=== PATIENT | male | born 1960 | race Caucasian/White ===

== ENCOUNTER 2018-08-04 14:03 | Inpatient (IN) | payer MEDICARE ==
[~2018-08-04] VITALS: Ht 167.6 cm; Wt 99.7 kg
[~2018-08-04 14:03] MED LIST: GABA800T2 PO; INSU100I28 SQ; LISI40TA PO; MELO15TA24 PO; METF10002 PO; OMEP-110 PO; OXYC5CAP2 PO; PRAV20TA2 PO; SITA100T PO; SUCR1TAB PO
[2018-08-04] MEDS ORDERED: SODIUM CHLORIDE FLUSH 10ML SYR IVF ONE ×2 (14:30→15:30)
[2018-08-04 15:23] LABS: BASOPHILS # (AUTO) 0.03 x10^3/uL (0-0.1); BASOPHILS % (AUTO) 0 % (0-1); EOSINOPHILS # (AUTO) 0.08 x10^3/uL (0-0.4); EOSINOPHILS % (AUTO) 1 % (1-7); LYMPHOCYTES # (AUTO) 2.66 x10^3/uL (1-3.4); LYMPHOCYTES % (AUTO) 25 % (22-44); MD NO; MEAN CORPUSCULAR HEMOGLOBIN 28.7 pg (27.5-34.5); MEAN CORPUSCULAR VOLUME 86.9 fL (81-97); MEAN PLATELET VOLUME 8.1 fL (7.4-10.4); MONOCYTES # (AUTO) 0.87 x10^3/uL (0.2-0.8); MONOCYTES % (AUTO) 8 % (2-9); NEUTROPHILS # (AUTO) 7.02 x10^3/uL (1.8-6.8); NEUTROPHILS % (AUTO) 66 % (42-75); PLATELET COUNT 270 x10^3/uL (130-400)
[2018-08-04] MEDS ORDERED: SODIUM CHLORIDE 0.9% 1,000ML IVBOLUS ONE ×2 (15:30→16:00)
[2018-08-04 15:31] LABS: ALANINE AMINOTRANSFERASE 31 U/L (12-78); ALBUMIN 3.4 g/dL (3.4-5.0); ANION GAP 15 mmol/L (5-15); CALCIUM 8.5 mg/dL (8.5-10.1); CHLORIDE 105 mmol/L (98-107); CREATININE 1.06 mg/dL (0.7-1.3)
[2018-08-04 15:33] LABS: ALKALINE PHOSPHATASE 125 U/L (45-117); BILIRUBIN,TOTAL 0.2 mg/dL (0.2-1.0); TOTAL PROTEIN 7.4 g/dL (6.4-8.2)
[2018-08-04] MEDS: SODIUM CHLORIDE 0.9% 1,000 ML IV SCH ×3 (16:24→20:24)
[2018-08-04] MEDS ORDERED: AMPICILLIN/SULBACTAM 3 GM in SODIUM CHLORIDE 0.9% 100 ML IV ONE (16:30)
[2018-08-04] MEDS ORDERED: BISACODYL 10 MG SUPP PR PRN (16:30)
[2018-08-04] MEDS ORDERED: ONDANSETRON ODT 4 MG PO PRN (16:30)
[2018-08-04] MEDS ORDERED: DEXTROSE 50%, 50ML SYRINGE IVPush PRN (16:30)
[2018-08-04] MEDS ORDERED: DEXTROSE 4 GM TAB.CHEW PO PRN (16:30)
[2018-08-04] MEDS ORDERED: ZOLPIDEM 5MG TABLET PO PRN (16:30)
[2018-08-04] MEDS ORDERED: ACETAMINOPHEN 325 MG TABLET PO PRN (16:30)
[2018-08-04] MEDS ORDERED: DOCUSATE 100 MG CAPSULE PO PRN (16:30)
[2018-08-04] MEDS ORDERED: ONDANSETRON 2MG/ML, 2ML IV PRN (16:30)
[2018-08-04] MEDS ORDERED: PHARMACY MAY ADJ FOR RENAL FX MC SCH (16:30)
[2018-08-04] MEDS ORDERED: VANCOMYCIN PER PHARMACY MC SCH (16:30)
[2018-08-04] MEDS ORDERED: GLUCAGON 1 MG IM PRN (16:30)
[2018-08-04] MEDS ORDERED: BUPR150T13 PO (16:49)
[2018-08-04] MEDS ORDERED: AMLO10TA6 PO (16:52)
[2018-08-04] MEDS ORDERED: ATOR40TA78 PO (16:52)
[2018-08-04 17:34] LABS: HEMOGLOBIN A1C 8.9 % (4.2-6.3)
[2018-08-04] MEDS ORDERED: PHARMACOKINETIC MONITORING MC PRN (18:00)
[2018-08-04] MEDS ORDERED: PHARMACOKINETIC CONSULTATION MC ONE (18:00)
[2018-08-04] MEDS ORDERED: GADOBUTROL 10 MMOL/10 ML PFS ONE (19:13)
[2018-08-04] MEDS: PIPERACILLIN/TAZO/PMX 4.5GM 100 ML IVPB SCH (19:55)
[2018-08-04 20:00] VITALS: BP 130/71
[2018-08-04] MEDS: VANCOMYCIN 1,900 MG in SODIUM CHLORIDE 0.9% 250 ML IV SCH (20:48)
[2018-08-04] MEDS: SODIUM CHLORIDE FLUSH 10ML SYR IVF SCH (20:50)
[2018-08-04] MEDS: INSULIN REGULAR 100 UNITS/ML, 3ML VIAL SQ-INSULIN SCH (20:51)
[2018-08-04] MEDS: INSULIN LISPRO 100 UNITS/ML, PEN SQ-INSULIN SCH (20:51)
[2018-08-04] MEDS: GABAPENTIN 400 MG CAPSULE PO SCH (21:36)
[2018-08-04] MEDS: HEPARIN 5,000 UNITS/ML, 1ML SQ SCH (21:36)
[2018-08-04] MEDS: metFORMIN 500 MG TABLET PO SCH (21:36)
[2018-08-04] MEDS: PRAVASTATIN 20 MG TABLET PO SCH (21:36)
[2018-08-04 22:29] LABS: MICROSCOPIC NOT IND
[2018-08-05] MEDS: SODIUM CHLORIDE 0.9% 1,000 ML IV SCH ×4 (00:24→08:24)
[2018-08-05 01:19] VITALS: BP 127/75
[2018-08-05] MEDS: PIPERACILLIN/TAZO/PMX 4.5GM 100 ML IVPB SCH ×4 (02:09→20:01)
[2018-08-05] MEDS: HEPARIN 5,000 UNITS/ML, 1ML SQ SCH ×3 (06:21→22:35)
[2018-08-05] MEDS: INSULIN REGULAR 100 UNITS/ML, 3ML VIAL SQ-INSULIN SCH (07:00)
[2018-08-05 07:03] VITALS: BP 115/78
[2018-08-05] MEDS: SODIUM CHLORIDE FLUSH 10ML SYR IVF SCH ×2 (09:00→22:35)
[2018-08-05] MEDS: INSULIN DETEMIR 32 UNIT SQ SCH (09:00)
[2018-08-05] MEDS: GABAPENTIN 400 MG CAPSULE PO SCH ×3 (09:02→20:13)
[2018-08-05] MEDS: LISINOPRIL 20 MG TABLET PO SCH (09:02)
[2018-08-05] MEDS: SENNA/DOCUSATE TABLET PO SCH (09:02)
[2018-08-05] MEDS: metFORMIN 500 MG TABLET PO SCH ×2 (09:02→20:13)
[2018-08-05] MEDS: OMEPRAZOLE 20 MG CAPSULE.DR PO SCH (09:03)
[2018-08-05] MEDS: INSULIN LISPRO 100 UNITS/ML, PEN SQ-INSULIN SCH ×4 (10:04→20:14)
[2018-08-05 12:30] VITALS: BP 113/71
[2018-08-05] MEDS: HYDROcodone/APAP 5/325 TABLET PO PRN ×2 (17:33→22:41)
[2018-08-05 18:45] VITALS: BP 128/77
[2018-08-05] MEDS: PRAVASTATIN 20 MG TABLET PO SCH (20:13)
[2018-08-05] MEDS: VANCOMYCIN 1,900 MG in SODIUM CHLORIDE 0.9% 250 ML IV SCH (20:45)
[2018-08-06 00:50] VITALS: BP 144/89
[2018-08-06] MEDS: PIPERACILLIN/TAZO/PMX 4.5GM 100 ML IVPB SCH ×4 (02:13→20:43)
[2018-08-06 05:18] LABS: MD NO; MEAN CORPUSCULAR HGB CONC 33.5 g/dL (33.2-36.2); MEAN CORPUSCULAR VOLUME 86.5 fL (81-97); RED CELL DISTRIBUTION WIDTH 13.9 % (9.4-14.8)
[2018-08-06 05:21] LABS: CHLORIDE 104 mmol/L (98-107)
[2018-08-06 05:28] LABS: ALANINE AMINOTRANSFERASE 21 U/L (12-78); ALKALINE PHOSPHATASE 97 U/L (45-117); ANION GAP 9 mmol/L (5-15); BILIRUBIN,TOTAL 0.4 mg/dL (0.2-1.0); CALCIUM 8.5 mg/dL (8.5-10.1); CREATININE 0.87 mg/dL (0.7-1.3); HIGH-SENSITIVITY CRP 0.24 mg/dL (0.02-0.30); TOTAL PROTEIN 6.6 g/dL (6.4-8.2)
[2018-08-06 05:32] LABS: BASOPHILS # (AUTO) 0.04 x10^3/uL (0-0.1); BASOPHILS % (AUTO) 1 % (0-1); EOSINOPHILS # (AUTO) 0.07 x10^3/uL (0-0.4); EOSINOPHILS % (AUTO) 1 % (1-7); LYMPHOCYTES # (AUTO) 1.46 x10^3/uL (1-3.4); LYMPHOCYTES % (AUTO) 27 % (22-44); MEAN CORPUSCULAR HEMOGLOBIN 28.9 pg (27.5-34.5); MONOCYTES # (AUTO) 0.43 x10^3/uL (0.2-0.8); MONOCYTES % (AUTO) 8 % (2-9); NEUTROPHILS # (AUTO) 3.41 x10^3/uL (1.8-6.8); NEUTROPHILS % (AUTO) 63 % (42-75); PLATELET COUNT 201 x10^3/uL (130-400); RED BLOOD COUNT 4.44 x10^6/uL (4.38-5.82)
[2018-08-06 05:46] LABS: HCT (SEDRATE) 38.4 % (39.2-51.8)
[2018-08-06] MEDS: HEPARIN 5,000 UNITS/ML, 1ML SQ SCH ×3 (06:14→23:04)
[2018-08-06 06:59] VITALS: BP 126/83
[2018-08-06] MEDS: HYDROcodone/APAP 5/325 TABLET PO PRN ×4 (08:22→23:05)
[2018-08-06] MEDS: INSULIN LISPRO 100 UNITS/ML, PEN SQ-INSULIN SCH ×4 (08:23→21:13)
[2018-08-06] MEDS: SODIUM CHLORIDE FLUSH 10ML SYR IVF SCH ×2 (08:23→21:13)
[2018-08-06] MEDS: metFORMIN 500 MG TABLET PO SCH ×2 (08:24→21:12)
[2018-08-06] MEDS: SENNA/DOCUSATE TABLET PO SCH (08:24)
[2018-08-06] MEDS: OMEPRAZOLE 20 MG CAPSULE.DR PO SCH (08:24)
[2018-08-06] MEDS: LISINOPRIL 20 MG TABLET PO SCH (08:24)
[2018-08-06] MEDS: INSULIN DETEMIR 32 UNIT SQ SCH (09:00)
[2018-08-06 12:10] VITALS: BP 125/77
[2018-08-06] MEDS: GABAPENTIN 400 MG CAPSULE PO SCH ×3 (13:59→21:12)
[2018-08-06 20:23] VITALS: BP 117/68
[2018-08-06] MEDS: PRAVASTATIN 20 MG TABLET PO SCH (21:12)
[2018-08-06] MEDS: VANCOMYCIN 1,900 MG in SODIUM CHLORIDE 0.9% 250 ML IV SCH (21:31)
[2018-08-07 01:50] VITALS: BP 128/78
[2018-08-07] MEDS: PIPERACILLIN/TAZO/PMX 4.5GM 100 ML IVPB SCH ×4 (01:52→20:44)
[2018-08-07] MEDS: HYDROcodone/APAP 5/325 TABLET PO PRN ×4 (05:54→21:07)
[2018-08-07 06:58] VITALS: BP 141/63
[2018-08-07] MEDS: SENNA/DOCUSATE TABLET PO SCH (08:36)
[2018-08-07] MEDS: SODIUM CHLORIDE FLUSH 10ML SYR IVF SCH ×2 (08:43→20:46)
[2018-08-07] MEDS: HEPARIN 5,000 UNITS/ML, 1ML SQ SCH ×2 (08:43→16:02)
[2018-08-07] MEDS: LISINOPRIL 20 MG TABLET PO SCH (08:43)
[2018-08-07] MEDS: INSULIN LISPRO 100 UNITS/ML, PEN SQ-INSULIN SCH ×4 (08:43→20:45)
[2018-08-07] MEDS: OMEPRAZOLE 20 MG CAPSULE.DR PO SCH (08:44)
[2018-08-07] MEDS: metFORMIN 500 MG TABLET PO SCH ×2 (08:44→20:45)
[2018-08-07] MEDS: INSULIN DETEMIR 32 UNIT SQ SCH (08:44)
[2018-08-07] MEDS: GABAPENTIN 400 MG CAPSULE PO SCH ×3 (08:49→21:08)
[2018-08-07 13:02] VITALS: BP 131/80
[2018-08-07] MEDS ORDERED: VANCOMYCIN 2,000 MG in SODIUM CHLORIDE 0.9% 250 ML IV SCH (16:00)
[2018-08-07 20:00] VITALS: BP 142/76
[2018-08-07] MEDS: PRAVASTATIN 20 MG TABLET PO SCH (20:44)
[2018-08-07] MEDS ORDERED: INSULIN GLARGINE 100 UNITS/ML, PEN SQ-INSULIN SCH (21:00)
[2018-08-08 00:49] VITALS: BP 154/85
[2018-08-08] MEDS: PIPERACILLIN/TAZO/PMX 4.5GM 100 ML IVPB SCH ×3 (02:23→14:07)
[2018-08-08] MEDS: HEPARIN 5,000 UNITS/ML, 1ML SQ SCH ×3 (02:23→17:04)
[2018-08-08 06:59] VITALS: BP 141/82
[2018-08-08] MEDS: SENNA/DOCUSATE TABLET PO SCH (08:18)
[2018-08-08] MEDS: INSULIN DETEMIR 32 UNIT SQ SCH (08:18)
[2018-08-08] MEDS: HYDROcodone/APAP 5/325 TABLET PO PRN ×2 (08:23→12:32)
[2018-08-08] MEDS: metFORMIN 500 MG TABLET PO SCH (08:23)
[2018-08-08] MEDS: LISINOPRIL 20 MG TABLET PO SCH (08:24)
[2018-08-08] MEDS: SODIUM CHLORIDE FLUSH 10ML SYR IVF SCH (08:24)
[2018-08-08] MEDS: OMEPRAZOLE 20 MG CAPSULE.DR PO SCH (08:24)
[2018-08-08] MEDS: GABAPENTIN 400 MG CAPSULE PO SCH ×2 (08:27→16:40)
[2018-08-08] MEDS: INSULIN LISPRO 100 UNITS/ML, PEN SQ-INSULIN SCH ×3 (08:29→16:41)
[2018-08-08 12:14] VITALS: BP 117/71
[2018-08-08] MEDS ORDERED: LINE600T37 PO (12:49)
[2018-08-08] MEDS ORDERED: HYDR-3240 PO (12:57)
[2018-08-08] MEDS ORDERED: VANCOMYCIN 2,000 MG in SODIUM CHLORIDE 0.9% 250 ML IV SCH (15:00)
== END 2018-08-08 18:29 | disposition home or self-care (01) | DRG 871 ==
LOC: ED 16:15 → EDIP 16:24 → 3NE 17:33
PROVIDERS: ADMIT Internal Medicine; ATTEND Internal Medicine
DX: A41.9 Sepsis, unspecified organism (principal); R65.21 Severe sepsis with septic shock; L97.409 Non-pressure chronic ulcer of unspecified heel and midfoot with unspecified severity; L03.115 Cellulitis of right lower limb; E87.2 Acidosis; M19.90 Unspecified osteoarthritis, unspecified site; I10 Essential (primary) hypertension; E11.621 Type 2 diabetes mellitus with foot ulcer; M85.80 Other specified disorders of bone density and structure, unspecified site; E86.1 Hypovolemia; Z86.79 Personal history of other diseases of the circulatory system; Z89.421 Acquired absence of other right toe(s); Z89.422 Acquired absence of other left toe(s); A49.01 Methicillin susceptible Staphylococcus aureus infection, unspecified site; Z79.899 Other long term (current) drug therapy; Z72.0 Tobacco use; Z72.89 Other problems related to lifestyle; Z90.49 Acquired absence of other specified parts of digestive tract
CPT/HCPCS: 36415; 36600; 80053; 80202; 81003; 82533; 82803; 82962; 83036; 83605; 83735; 85025; 85651; 86141; 87040; 87070; 87077; 87086; 87186; 87205; 90656; 93922; 99291; A9585; G0378; J0295; J1644; J1815; J2543; J3370; J7030; J7050

== ENCOUNTER 2018-09-05 19:31 | Inpatient (IN) | payer MEDICARE ==
[~2018-09-05] VITALS: Ht 175.3 cm; Wt 101.1 kg
[~2018-09-05 19:31] MED LIST changes: +AMLO10TA6 PO; +ATOR40TA78 PO; +BUPR150T13 PO; +HYDR-3240 PO; +LINE600T37 PO
[2018-09-05 20:42] LABS: BASOPHILS # (AUTO) 0.02 x10^3/uL (0-0.1); BASOPHILS % (AUTO) 0 % (0-1); EOSINOPHILS % (AUTO) 0 % (1-7); LYMPHOCYTES # (AUTO) 0.91 x10^3/uL (1-3.4); LYMPHOCYTES % (AUTO) 7 % (22-44); MD NO; MEAN CORPUSCULAR HEMOGLOBIN 29.3 pg (27.5-34.5); MEAN CORPUSCULAR HGB CONC 33.6 g/dL (33.2-36.2); MEAN CORPUSCULAR VOLUME 87.2 fL (81-97); MEAN PLATELET VOLUME 8.8 fL (7.4-10.4); MONOCYTES % (AUTO) 4 % (2-9); NEUTROPHILS # (AUTO) 12.05 x10^3/uL (1.8-6.8); NEUTROPHILS % (AUTO) 89 % (42-75); PLATELET COUNT 184 x10^3/uL (130-400); RED BLOOD COUNT 4.77 x10^6/uL (4.38-5.82); RED CELL DISTRIBUTION WIDTH 14.7 % (9.4-14.8)
[2018-09-05 20:48] LABS: ALBUMIN 3.2 g/dL (3.4-5.0); ANION GAP 12 mmol/L (5-15); CALCIUM 8.1 mg/dL (8.5-10.1); CHLORIDE 93 mmol/L (98-107); CREATININE 1.48 mg/dL (0.7-1.3)
[2018-09-05 20:52] LABS: HCT (SEDRATE) 41.6 % (39.2-51.8)
[2018-09-05 21:22] LABS: C-REACTIVE PROTEIN, QUANT > 19.00 mg/dL (0.02-0.49)
[2018-09-05] MEDS ORDERED: SODIUM CHLORIDE FLUSH 10ML SYR IVF ONE (21:30)
[2018-09-05] MEDS ORDERED: CLINDAMYCIN PMX 900MG/50ML 50 ML IV ONE (21:30)
[2018-09-05] MEDS ORDERED: SODIUM CHLORIDE 0.9% 1,000ML IVBOLUS ONE (21:30)
[2018-09-05] MEDS ORDERED: SODIUM CHLORIDE 0.9% 1,000 ML IV ONE (21:36)
[2018-09-05] MEDS ORDERED: CLINDAMYCIN PMX 900MG/50ML 50 ML ONE (21:49)
[2018-09-05] MEDS ORDERED: BUPR150T6 PO (21:58)
[2018-09-05] MEDS ORDERED: INSU100V13 SQ-INSULIN (21:58)
[2018-09-05] MEDS ORDERED: MELO15TA24 PO (21:58)
[2018-09-05] MEDS ORDERED: ATOR-2 PO (21:58)
[2018-09-05] MEDS ORDERED: NOVOLOG (22:00)
[2018-09-05] MEDS ORDERED: SODIUM CHLORIDE FLUSH 10ML SYR IVF PRN (22:00)
[2018-09-05] MEDS ORDERED: DOCUSATE 100 MG CAPSULE PO PRN (22:30)
[2018-09-05] MEDS ORDERED: TEMAZEPAM 15 MG CAPSULE PO PRN (22:30)
[2018-09-05] MEDS: NICOTINE 7 MG/24 HR PATCH.TD24 TD SCH (22:30)
[2018-09-05] MEDS ORDERED: hydrALAzine 20 MG/ML, 1ML IVPush PRN (22:30)
[2018-09-05] MEDS ORDERED: PHARMACY MAY ADJ FOR RENAL FX MC PRN (22:30)
[2018-09-05 22:40] VITALS: BP 127/76
[2018-09-05 22:43] VITALS: BP 127/76
[2018-09-05] MEDS: HEPARIN 5,000 UNITS/ML, 1ML SQ SCH (23:43)
[2018-09-06] MEDS: INSULIN REGULAR 100 UNITS/ML, 3ML VIAL SQ-INSULIN SCH ×5 (00:55→20:55)
[2018-09-06 01:47] LABS: BASOPHILS # (AUTO) 0.02 x10^3/uL (0-0.1); BASOPHILS % (AUTO) 0 % (0-1); EOSINOPHILS # (AUTO) 0.02 x10^3/uL (0-0.4); EOSINOPHILS % (AUTO) 0 % (1-7); LYMPHOCYTES # (AUTO) 1.19 x10^3/uL (1-3.4); LYMPHOCYTES % (AUTO) 12 % (22-44); MD NO; MEAN CORPUSCULAR HEMOGLOBIN 29.4 pg (27.5-34.5); MEAN CORPUSCULAR HGB CONC 33.4 g/dL (33.2-36.2); MEAN CORPUSCULAR VOLUME 87.9 fL (81-97); MEAN PLATELET VOLUME 8.2 fL (7.4-10.4); MONOCYTES # (AUTO) 0.71 x10^3/uL (0.2-0.8); MONOCYTES % (AUTO) 7 % (2-9); NEUTROPHILS # (AUTO) 7.96 x10^3/uL (1.8-6.8); NEUTROPHILS % (AUTO) 80 % (42-75); PLATELET COUNT 116 x10^3/uL (130-400); RED BLOOD COUNT 4.65 x10^6/uL (4.38-5.82); RED CELL DISTRIBUTION WIDTH 14.5 % (9.4-14.8)
[2018-09-06 01:57] LABS: ANION GAP 9 mmol/L (5-15); CALCIUM 7.8 mg/dL (8.5-10.1); CHLORIDE 97 mmol/L (98-107); CREATININE 1.17 mg/dL (0.7-1.3)
[2018-09-06 02:11] VITALS: BP 121/74
[2018-09-06 02:24] LABS: RAPID INFLUENZA A Negative (Negative); RAPID INFLUENZA B Negative (Negative)
[2018-09-06 07:40] VITALS: BP 114/75
[2018-09-06] MEDS: AMPICILLIN/SULBACTAM 3 GM in SODIUM CHLORIDE 0.9% 100 ML IV SCH ×3 (07:43→23:29)
[2018-09-06] MEDS: HEPARIN 5,000 UNITS/ML, 1ML SQ SCH ×3 (09:01→23:29)
[2018-09-06] MEDS: ACETAMINOPHEN 325 MG TABLET PO PRN ×2 (11:48→22:34)
[2018-09-06 14:00] VITALS: BP 118/70
[2018-09-06 19:08] VITALS: BP 116/71
[2018-09-06] MEDS ORDERED: INSULIN GLARGINE 100 UNITS/ML, PEN SQ-INSULIN SCH (22:00)
[2018-09-06] MEDS: NICOTINE 7 MG/24 HR PATCH.TD24 TD SCH (22:33)
[2018-09-06] MEDS: GABAPENTIN 400 MG CAPSULE PO SCH (22:33)
[2018-09-07 01:58] VITALS: BP 113/73
[2018-09-07] MEDS: ACETAMINOPHEN 325 MG TABLET PO PRN (04:23)
[2018-09-07 07:31] VITALS: BP 99/65
[2018-09-07] MEDS: OMEPRAZOLE 20 MG CAPSULE.DR PO SCH (08:06)
[2018-09-07] MEDS: AMPICILLIN/SULBACTAM 3 GM in SODIUM CHLORIDE 0.9% 100 ML IV SCH ×2 (08:06→16:41)
[2018-09-07] MEDS: HEPARIN 5,000 UNITS/ML, 1ML SQ SCH ×3 (08:07→22:04)
[2018-09-07] MEDS: INSULIN REGULAR 100 UNITS/ML, 3ML VIAL SQ-INSULIN SCH (08:07)
[2018-09-07] MEDS: AMLODIPINE 5 MG TABLET PO SCH (09:00)
[2018-09-07] MEDS: LISINOPRIL 20 MG TABLET PO SCH (09:00)
[2018-09-07] MEDS: GABAPENTIN 400 MG CAPSULE PO SCH ×3 (09:39→21:52)
[2018-09-07] MEDS: MELOXICAM 15 MG TABLET PO SCH (09:39)
[2018-09-07] MEDS ORDERED: VANCOMYCIN PMX 1GM/200ML 200 ML IV ONE (10:00)
[2018-09-07] MEDS ORDERED: PHARMACOKINETIC MONITORING MC PRN (10:00)
[2018-09-07] MEDS ORDERED: VANCOMYCIN 1,900 MG in SODIUM CHLORIDE 0.9% 250 ML IV SCH (10:00)
[2018-09-07] MEDS ORDERED: VANCOMYCIN PER PHARMACY MC PRN (10:00)
[2018-09-07] MEDS: INSULIN LISPRO 100 UNITS/ML, PEN SQ-INSULIN SCH ×3 (11:00→21:53)
[2018-09-07] MEDS: BUPROPION 100 MG TABLET PO SCH ×2 (11:00→21:53)
[2018-09-07 17:45] VITALS: BP 113/72
[2018-09-07 21:09] VITALS: BP 115/78
[2018-09-07] MEDS: NICOTINE 7 MG/24 HR PATCH.TD24 TD SCH (21:52)
[2018-09-07] MEDS: ATORVASTATIN 40 MG TABLET PO SCH (21:52)
[2018-09-07] MEDS: INSULIN GLARGINE 100 UNITS/ML, PEN SQ-INSULIN SCH (21:54)
[2018-09-08] MEDS: AMPICILLIN/SULBACTAM 3 GM in SODIUM CHLORIDE 0.9% 100 ML IV SCH ×3 (01:29→17:39)
[2018-09-08 02:17] VITALS: BP 128/82
[2018-09-08] MEDS: VANCOMYCIN 1,900 MG in SODIUM CHLORIDE 0.9% 250 ML IV SCH ×2 (02:22→20:11)
[2018-09-08] MEDS: HEPARIN 5,000 UNITS/ML, 1ML SQ SCH ×3 (06:18→23:45)
[2018-09-08] MEDS: OMEPRAZOLE 20 MG CAPSULE.DR PO SCH (06:18)
[2018-09-08 07:05] VITALS: BP 123/78
[2018-09-08] MEDS: GABAPENTIN 400 MG CAPSULE PO SCH ×3 (08:02→20:11)
[2018-09-08] MEDS: LISINOPRIL 20 MG TABLET PO SCH (08:03)
[2018-09-08] MEDS: AMLODIPINE 5 MG TABLET PO SCH (08:05)
[2018-09-08] MEDS: BUPROPION 100 MG TABLET PO SCH ×2 (08:05→20:11)
[2018-09-08] MEDS: MELOXICAM 15 MG TABLET PO SCH (08:05)
[2018-09-08] MEDS: INSULIN LISPRO 100 UNITS/ML, PEN SQ-INSULIN SCH ×4 (08:07→20:12)
[2018-09-08 13:27] VITALS: BP 124/79
[2018-09-08] MEDS: ATORVASTATIN 40 MG TABLET PO SCH (20:11)
[2018-09-08] MEDS: INSULIN GLARGINE 100 UNITS/ML, PEN SQ-INSULIN SCH (20:12)
[2018-09-08 20:39] VITALS: BP 121/80
[2018-09-08] MEDS: NICOTINE 7 MG/24 HR PATCH.TD24 TD SCH (23:45)
[2018-09-09] MEDS: AMPICILLIN/SULBACTAM 3 GM in SODIUM CHLORIDE 0.9% 100 ML IV SCH ×2 (02:02→10:11)
[2018-09-09 03:46] VITALS: BP 125/78
[2018-09-09] MEDS: ACETAMINOPHEN 325 MG TABLET PO PRN ×2 (04:42→08:29)
[2018-09-09] MEDS: HEPARIN 5,000 UNITS/ML, 1ML SQ SCH ×2 (06:15→14:13)
[2018-09-09 07:47] VITALS: BP 117/77
[2018-09-09] MEDS: AMLODIPINE 5 MG TABLET PO SCH (08:12)
[2018-09-09] MEDS: MELOXICAM 15 MG TABLET PO SCH (08:12)
[2018-09-09] MEDS: INSULIN LISPRO 100 UNITS/ML, PEN SQ-INSULIN SCH ×2 (08:12→12:10)
[2018-09-09] MEDS: LISINOPRIL 20 MG TABLET PO SCH (08:13)
[2018-09-09] MEDS: GABAPENTIN 400 MG CAPSULE PO SCH (08:13)
[2018-09-09] MEDS: BUPROPION 100 MG TABLET PO SCH (08:13)
[2018-09-09] MEDS: OMEPRAZOLE 20 MG CAPSULE.DR PO SCH (08:13)
[2018-09-09 12:03] VITALS: BP 131/86
[2018-09-09] MEDS ORDERED: LINE600T37 PO (12:39)
[2018-09-09] MEDS ORDERED: AMOX1TAB64 PO (12:39)
[2018-09-09] MEDS: VANCOMYCIN 1,900 MG in SODIUM CHLORIDE 0.9% 250 ML IV SCH (14:13)
[2018-09-09 16:11] VITALS: BP 145/82
== END 2018-09-09 16:38 | disposition home or self-care (01) | DRG 871 ==
LOC: ED 21:25 → EDIP 21:36 → ED 21:37 → 4NOR 22:38 → DCLOUNGE 09-09 16:27
PROVIDERS: ADMIT Hospitalist; ATTEND Hospitalist
DX: A41.9 Sepsis, unspecified organism (principal); N17.0 Acute kidney failure with tubular necrosis; E87.1 Hypo-osmolality and hyponatremia; L03.116 Cellulitis of left lower limb; E11.21 Type 2 diabetes mellitus with diabetic nephropathy; E11.51 Type 2 diabetes mellitus with diabetic peripheral angiopathy without gangrene; E11.621 Type 2 diabetes mellitus with foot ulcer; E11.65 Type 2 diabetes mellitus with hyperglycemia; Z71.6 Tobacco abuse counseling; E78.5 Hyperlipidemia, unspecified; F10.10 Alcohol abuse, uncomplicated; F17.210 Nicotine dependence, cigarettes, uncomplicated; I10 Essential (primary) hypertension; L97.509 Non-pressure chronic ulcer of other part of unspecified foot with unspecified severity; R65.20 Severe sepsis without septic shock; Z86.79 Personal history of other diseases of the circulatory system; Z89.421 Acquired absence of other right toe(s); Z89.422 Acquired absence of other left toe(s); M19.072 Primary osteoarthritis, left ankle and foot
CPT/HCPCS: 36415; 80048; 80202; 82040; 82962; 83605; 84145; 85025; 85651; 86140; 87040; 87400; 99285; G0378; J0295; J1644; J1815; J3370; J7030; J7050

== ENCOUNTER → 2018-09-21 | Outpatient (CLI) | payer MEDICAID, MEDICARE ==
[~2018-09-21] MED LIST changes: +AMOX1TAB64 PO; +ATOR-2 PO; +BUPR150T6 PO; +INSU100V13 SQ-INSULIN; +NOVOLOG
== END | disposition home or self-care (01) ==
LOC: WOUND 12:59
PROVIDERS: ATTEND Internal Medicine
DX: E11.621 Type 2 diabetes mellitus with foot ulcer (principal); L97.522 Non-pressure chronic ulcer of other part of left foot with fat layer exposed; L97.411 Non-pressure chronic ulcer of right heel and midfoot limited to breakdown of skin; E11.65 Type 2 diabetes mellitus with hyperglycemia; E11.21 Type 2 diabetes mellitus with diabetic nephropathy; E11.51 Type 2 diabetes mellitus with diabetic peripheral angiopathy without gangrene; I10 Essential (primary) hypertension; A41.9 Sepsis, unspecified organism; N28.9 Disorder of kidney and ureter, unspecified; E78.5 Hyperlipidemia, unspecified; M19.072 Primary osteoarthritis, left ankle and foot; F17.210 Nicotine dependence, cigarettes, uncomplicated; Z79.4 Long term (current) use of insulin; Z89.422 Acquired absence of other left toe(s); Z89.421 Acquired absence of other right toe(s); Z90.49 Acquired absence of other specified parts of digestive tract
CPT/HCPCS: 11042; 17250; G0463

== ENCOUNTER 2018-09-28 13:02 | Outpatient (CLI) | payer MEDICARE | END 2018-10-10 11:15 | disposition home or self-care (01) | LOC: WOUND 13:02 | PROVIDERS: ATTEND Internal Medicine | DX: E11.621 Type 2 diabetes mellitus with foot ulcer (principal); L97.522 Non-pressure chronic ulcer of other part of left foot with fat layer exposed; L97.411 Non-pressure chronic ulcer of right heel and midfoot limited to breakdown of skin; E11.21 Type 2 diabetes mellitus with diabetic nephropathy; E11.40 Type 2 diabetes mellitus with diabetic neuropathy, unspecified; E11.51 Type 2 diabetes mellitus with diabetic peripheral angiopathy without gangrene; E11.65 Type 2 diabetes mellitus with hyperglycemia; I10 Essential (primary) hypertension; E78.5 Hyperlipidemia, unspecified; A41.9 Sepsis, unspecified organism; N28.9 Disorder of kidney and ureter, unspecified; M19.072 Primary osteoarthritis, left ankle and foot; F10.10 Alcohol abuse, uncomplicated; F17.210 Nicotine dependence, cigarettes, uncomplicated; Z79.4 Long term (current) use of insulin; Z89.421 Acquired absence of other right toe(s); Z89.422 Acquired absence of other left toe(s); Z90.49 Acquired absence of other specified parts of digestive tract | CPT/HCPCS: 97597 ==

== ENCOUNTER → 2018-09-30 | Outpatient (CLI) | payer MEDICAID, MEDICARE | END | disposition home or self-care (01) | LOC: CVU 10:23 | PROVIDERS: ATTEND Internal Medicine | DX: I87.2 Venous insufficiency (chronic) (peripheral) (principal); E11.621 Type 2 diabetes mellitus with foot ulcer; L97.511 Non-pressure chronic ulcer of other part of right foot limited to breakdown of skin; L97.521 Non-pressure chronic ulcer of other part of left foot limited to breakdown of skin; I10 Essential (primary) hypertension; E11.40 Type 2 diabetes mellitus with diabetic neuropathy, unspecified; E78.5 Hyperlipidemia, unspecified; F10.10 Alcohol abuse, uncomplicated; F17.210 Nicotine dependence, cigarettes, uncomplicated; S91.301A Unspecified open wound, right foot, initial encounter; S91.302A Unspecified open wound, left foot, initial encounter; Z89.422 Acquired absence of other left toe(s); Z89.421 Acquired absence of other right toe(s); X58.XXXA Exposure to other specified factors, initial encounter; Y93.89 Activity, other specified; Y92.89 Other specified places as the place of occurrence of the external cause; Y99.8 Other external cause status | CPT/HCPCS: 93922; 93970 ==

== ENCOUNTER → 2018-10-05 | Outpatient (CLI) | payer MEDICARE | END | disposition home or self-care (01) | LOC: WOUND 14:05 | PROVIDERS: ATTEND Internal Medicine | DX: E11.621 Type 2 diabetes mellitus with foot ulcer (principal); L97.522 Non-pressure chronic ulcer of other part of left foot with fat layer exposed; L97.411 Non-pressure chronic ulcer of right heel and midfoot limited to breakdown of skin; E11.21 Type 2 diabetes mellitus with diabetic nephropathy; E11.51 Type 2 diabetes mellitus with diabetic peripheral angiopathy without gangrene; E11.65 Type 2 diabetes mellitus with hyperglycemia; E11.40 Type 2 diabetes mellitus with diabetic neuropathy, unspecified; I10 Essential (primary) hypertension; E78.5 Hyperlipidemia, unspecified; A41.9 Sepsis, unspecified organism; N28.9 Disorder of kidney and ureter, unspecified; F10.10 Alcohol abuse, uncomplicated; M19.072 Primary osteoarthritis, left ankle and foot; F17.210 Nicotine dependence, cigarettes, uncomplicated; Z79.4 Long term (current) use of insulin; Z89.422 Acquired absence of other left toe(s); Z89.421 Acquired absence of other right toe(s) | CPT/HCPCS: 11042; 97597 ==

== ENCOUNTER → 2018-10-25 | Outpatient (CLI) | payer MEDICARE | END | disposition home or self-care (01) | LOC: WOUND 13:57 | PROVIDERS: ATTEND Nurse Practitioner Family | DX: E11.621 Type 2 diabetes mellitus with foot ulcer (principal); L97.522 Non-pressure chronic ulcer of other part of left foot with fat layer exposed; E11.21 Type 2 diabetes mellitus with diabetic nephropathy; E11.40 Type 2 diabetes mellitus with diabetic neuropathy, unspecified; E11.51 Type 2 diabetes mellitus with diabetic peripheral angiopathy without gangrene; E11.65 Type 2 diabetes mellitus with hyperglycemia; L84 Corns and callosities; I10 Essential (primary) hypertension; F41.9 Anxiety disorder, unspecified; N28.9 Disorder of kidney and ureter, unspecified; E78.5 Hyperlipidemia, unspecified; M19.072 Primary osteoarthritis, left ankle and foot; F17.210 Nicotine dependence, cigarettes, uncomplicated; Z79.4 Long term (current) use of insulin; Z89.422 Acquired absence of other left toe(s); Z89.421 Acquired absence of other right toe(s); Z90.49 Acquired absence of other specified parts of digestive tract | CPT/HCPCS: 11042; 15275; Q4106 ==

== ENCOUNTER → 2018-11-03 | Outpatient (CLI) | payer MEDICARE | END | disposition home or self-care (01) | LOC: WOUND 14:59 | PROVIDERS: ATTEND Podiatrist Foot & Ankle Surgery | DX: E11.621 Type 2 diabetes mellitus with foot ulcer (principal); L97.522 Non-pressure chronic ulcer of other part of left foot with fat layer exposed; E11.21 Type 2 diabetes mellitus with diabetic nephropathy; E11.40 Type 2 diabetes mellitus with diabetic neuropathy, unspecified; E11.51 Type 2 diabetes mellitus with diabetic peripheral angiopathy without gangrene; E11.65 Type 2 diabetes mellitus with hyperglycemia; L84 Corns and callosities; I10 Essential (primary) hypertension; N28.9 Disorder of kidney and ureter, unspecified; E78.5 Hyperlipidemia, unspecified; F41.9 Anxiety disorder, unspecified; M19.072 Primary osteoarthritis, left ankle and foot; F17.210 Nicotine dependence, cigarettes, uncomplicated; Z79.4 Long term (current) use of insulin; Z89.422 Acquired absence of other left toe(s); Z89.421 Acquired absence of other right toe(s); Z90.49 Acquired absence of other specified parts of digestive tract | CPT/HCPCS: 15275; Q4106 ==

== ENCOUNTER → 2018-11-15 | Outpatient (CLI) | payer MEDICARE ==
[~2018-11-15] MED LIST changes: -AMLO10TA6 PO; +AMLO10TA8 PO; -GABA800T2 PO; +GABA800T5 PO
== END | disposition home or self-care (01) ==
LOC: WOUND 08:30
PROVIDERS: ATTEND Internal Medicine Infectious Disease
DX: E11.621 Type 2 diabetes mellitus with foot ulcer (principal); L97.512 Non-pressure chronic ulcer of other part of right foot with fat layer exposed; L97.522 Non-pressure chronic ulcer of other part of left foot with fat layer exposed; E11.65 Type 2 diabetes mellitus with hyperglycemia; E11.40 Type 2 diabetes mellitus with diabetic neuropathy, unspecified; E11.51 Type 2 diabetes mellitus with diabetic peripheral angiopathy without gangrene; L84 Corns and callosities; M19.90 Unspecified osteoarthritis, unspecified site; E78.5 Hyperlipidemia, unspecified; N28.9 Disorder of kidney and ureter, unspecified; M19.072 Primary osteoarthritis, left ankle and foot; F17.210 Nicotine dependence, cigarettes, uncomplicated; F41.9 Anxiety disorder, unspecified; Z79.4 Long term (current) use of insulin; Z89.422 Acquired absence of other left toe(s); Z89.421 Acquired absence of other right toe(s); Z90.49 Acquired absence of other specified parts of digestive tract
CPT/HCPCS: 15275; Q4133

== ENCOUNTER 2018-11-22 13:06 | Outpatient (CLI) | payer MEDICARE | END 2018-11-22 23:59 | disposition home or self-care (01) | LOC: WOUND 13:06 | PROVIDERS: ATTEND Nurse Practitioner Family | DX: E11.621 Type 2 diabetes mellitus with foot ulcer (principal); L97.522 Non-pressure chronic ulcer of other part of left foot with fat layer exposed; E11.65 Type 2 diabetes mellitus with hyperglycemia; E11.40 Type 2 diabetes mellitus with diabetic neuropathy, unspecified; E11.51 Type 2 diabetes mellitus with diabetic peripheral angiopathy without gangrene; E11.21 Type 2 diabetes mellitus with diabetic nephropathy; L84 Corns and callosities; F41.9 Anxiety disorder, unspecified; N28.9 Disorder of kidney and ureter, unspecified; F17.210 Nicotine dependence, cigarettes, uncomplicated; M19.072 Primary osteoarthritis, left ankle and foot; E78.5 Hyperlipidemia, unspecified; M19.90 Unspecified osteoarthritis, unspecified site; Z79.4 Long term (current) use of insulin; Z89.422 Acquired absence of other left toe(s); Z89.421 Acquired absence of other right toe(s); Z90.49 Acquired absence of other specified parts of digestive tract | CPT/HCPCS: 97597 ==

== ENCOUNTER 2020-02-21 16:03 | Emergency (ER) | payer MEDICARE ==
[~2020-02-21] VITALS: Ht 182.9 cm; Wt 83.9 kg
[~2020-02-21 16:03] MED LIST changes: +LINE600T12 PO; -LINE600T37 PO
--- NOTE | 2020-02-21 16:57 | NUR ---
RN to bedside, patient reports some discharge and pain. Provider to bedside, heels assessed, no purulent discharge, no redness and patient reports no fevers. Blood work order. RN provided warm blanket for pillow and TV for comfort. Awaiting phlebotomy.
[2020-02-21 17:25] VITALS: BP 104/65
[2020-02-21 17:30] LABS: BASOPHILS # (AUTO) 0.01 x10^3/uL (0-0.1); BASOPHILS % (AUTO) 0 % (0-1); EOSINOPHILS # (AUTO) 0.11 x10^3/uL (0-0.4); EOSINOPHILS % (AUTO) 2 % (1-7); LYMPHOCYTES # (AUTO) 1.59 x10^3/uL (1-3.4); LYMPHOCYTES % (AUTO) 27 % (22-44); MD NO; MEAN CORPUSCULAR HEMOGLOBIN 29.7 pg (27.5-34.5); MEAN CORPUSCULAR HGB CONC 32.5 g/dL (33.2-36.2); MEAN CORPUSCULAR VOLUME 91.3 fL (81-97); MEAN PLATELET VOLUME 7.4 fL (7.4-10.4); MONOCYTES # (AUTO) 0.42 x10^3/uL (0.2-0.8); MONOCYTES % (AUTO) 7 % (2-9); NEUTROPHILS % (AUTO) 63 % (42-75); PLATELET COUNT 265 x10^3/uL (130-400); RED BLOOD COUNT 4.01 x10^6/uL (4.38-5.82); RED CELL DISTRIBUTION WIDTH 12.7 % (9.4-14.8)
[2020-02-21 17:38] LABS: ANION GAP 11 mmol/L (5-15); CALCIUM 8.7 mg/dL (8.5-10.1); CHLORIDE 102 mmol/L (98-107); CREATININE 0.77 mg/dL (0.7-1.3)
== END 2020-02-21 19:24 | disposition home or self-care (01) ==
LOC: ED 16:55
DX: S91.302A Unspecified open wound, left foot, initial encounter (principal); S91.301A Unspecified open wound, right foot, initial encounter; E11.65 Type 2 diabetes mellitus with hyperglycemia; E11.10 Type 2 diabetes mellitus with ketoacidosis without coma; I10 Essential (primary) hypertension; Z79.4 Long term (current) use of insulin; Z90.49 Acquired absence of other specified parts of digestive tract; Z79.899 Other long term (current) drug therapy; X58.XXXA Exposure to other specified factors, initial encounter; Y93.89 Activity, other specified; Y92.89 Other specified places as the place of occurrence of the external cause; Y99.8 Other external cause status
CPT/HCPCS: 36415; 80048; 85025; 99283

== ENCOUNTER → 2020-05-30 | Outpatient (CLI) | payer MEDICARE | END | disposition home or self-care (01) | LOC: WOUND 09:18 | PROVIDERS: ATTEND Podiatrist Foot & Ankle Surgery | DX: E11.621 Type 2 diabetes mellitus with foot ulcer (principal); L97.421 Non-pressure chronic ulcer of left heel and midfoot limited to breakdown of skin; L97.411 Non-pressure chronic ulcer of right heel and midfoot limited to breakdown of skin; E11.10 Type 2 diabetes mellitus with ketoacidosis without coma; I10 Essential (primary) hypertension; L84 Corns and callosities; E78.5 Hyperlipidemia, unspecified; E11.51 Type 2 diabetes mellitus with diabetic peripheral angiopathy without gangrene; M19.90 Unspecified osteoarthritis, unspecified site; R26.9 Unspecified abnormalities of gait and mobility; F32.9 Major depressive disorder, single episode, unspecified; F17.210 Nicotine dependence, cigarettes, uncomplicated; Z90.49 Acquired absence of other specified parts of digestive tract; Z89.422 Acquired absence of other left toe(s); Z89.421 Acquired absence of other right toe(s); Z79.899 Other long term (current) drug therapy; Z79.4 Long term (current) use of insulin | CPT/HCPCS: 97597; G0463 ==

== ENCOUNTER 2020-06-06 10:56 | Outpatient (CLI) | payer MEDICARE | END 2020-06-06 23:59 | disposition home or self-care (01) | LOC: WOUND 10:56 | PROVIDERS: ATTEND Podiatrist Foot & Ankle Surgery | DX: E11.621 Type 2 diabetes mellitus with foot ulcer (principal); L97.421 Non-pressure chronic ulcer of left heel and midfoot limited to breakdown of skin; L97.411 Non-pressure chronic ulcer of right heel and midfoot limited to breakdown of skin; E11.10 Type 2 diabetes mellitus with ketoacidosis without coma; I10 Essential (primary) hypertension; L84 Corns and callosities; E78.5 Hyperlipidemia, unspecified; E11.51 Type 2 diabetes mellitus with diabetic peripheral angiopathy without gangrene; M19.90 Unspecified osteoarthritis, unspecified site; R26.9 Unspecified abnormalities of gait and mobility; F32.9 Major depressive disorder, single episode, unspecified; F17.210 Nicotine dependence, cigarettes, uncomplicated; Z90.49 Acquired absence of other specified parts of digestive tract; Z89.422 Acquired absence of other left toe(s); Z89.421 Acquired absence of other right toe(s); Z79.899 Other long term (current) drug therapy; Z79.4 Long term (current) use of insulin | CPT/HCPCS: 97597 ==

== ENCOUNTER → 2020-06-27 | Outpatient (CLI) | payer MEDICARE | END | disposition home or self-care (01) | LOC: WOUND 08:13 | PROVIDERS: ATTEND Podiatrist Foot & Ankle Surgery | DX: E11.621 Type 2 diabetes mellitus with foot ulcer (principal); L97.421 Non-pressure chronic ulcer of left heel and midfoot limited to breakdown of skin; L97.411 Non-pressure chronic ulcer of right heel and midfoot limited to breakdown of skin; E11.10 Type 2 diabetes mellitus with ketoacidosis without coma; I10 Essential (primary) hypertension; L84 Corns and callosities; E78.5 Hyperlipidemia, unspecified; E11.51 Type 2 diabetes mellitus with diabetic peripheral angiopathy without gangrene; M19.90 Unspecified osteoarthritis, unspecified site; R26.9 Unspecified abnormalities of gait and mobility; F32.9 Major depressive disorder, single episode, unspecified; F17.210 Nicotine dependence, cigarettes, uncomplicated; Z90.49 Acquired absence of other specified parts of digestive tract; Z89.422 Acquired absence of other left toe(s); Z89.421 Acquired absence of other right toe(s); Z79.899 Other long term (current) drug therapy; Z79.4 Long term (current) use of insulin | CPT/HCPCS: 97597 ==

== ENCOUNTER → 2020-07-04 | Outpatient (CLI) | payer MEDICARE | END | disposition home or self-care (01) | LOC: WOUND 10:28 | PROVIDERS: ATTEND Podiatrist Foot & Ankle Surgery | DX: E11.621 Type 2 diabetes mellitus with foot ulcer (principal); L97.411 Non-pressure chronic ulcer of right heel and midfoot limited to breakdown of skin; E11.10 Type 2 diabetes mellitus with ketoacidosis without coma; I10 Essential (primary) hypertension; L84 Corns and callosities; E78.5 Hyperlipidemia, unspecified; E11.51 Type 2 diabetes mellitus with diabetic peripheral angiopathy without gangrene; M19.90 Unspecified osteoarthritis, unspecified site; R26.9 Unspecified abnormalities of gait and mobility; F32.9 Major depressive disorder, single episode, unspecified; F17.210 Nicotine dependence, cigarettes, uncomplicated; Z90.49 Acquired absence of other specified parts of digestive tract; Z89.422 Acquired absence of other left toe(s); Z89.421 Acquired absence of other right toe(s); Z79.899 Other long term (current) drug therapy; Z79.4 Long term (current) use of insulin | CPT/HCPCS: 97597 ==

== ENCOUNTER → 2020-08-01 | Outpatient (CLI) | payer MEDICARE | END | disposition home or self-care (01) | LOC: WOUND 09:35 | PROVIDERS: ATTEND Podiatrist Foot & Ankle Surgery | DX: E11.621 Type 2 diabetes mellitus with foot ulcer (principal); L97.522 Non-pressure chronic ulcer of other part of left foot with fat layer exposed; L97.411 Non-pressure chronic ulcer of right heel and midfoot limited to breakdown of skin; E11.51 Type 2 diabetes mellitus with diabetic peripheral angiopathy without gangrene; L84 Corns and callosities; I10 Essential (primary) hypertension; E78.5 Hyperlipidemia, unspecified; M19.90 Unspecified osteoarthritis, unspecified site; F32.9 Major depressive disorder, single episode, unspecified; F17.210 Nicotine dependence, cigarettes, uncomplicated; Z79.4 Long term (current) use of insulin; Z89.422 Acquired absence of other left toe(s); Z90.49 Acquired absence of other specified parts of digestive tract; Z89.421 Acquired absence of other right toe(s) | CPT/HCPCS: 11042; 87070; 87077; 87186; 87205; 97597 ==

== ENCOUNTER 2020-08-08 10:30 | Outpatient (CLI) | payer MEDICARE | END 2020-08-08 23:59 | disposition home or self-care (01) | LOC: WOUND 10:30 | PROVIDERS: ATTEND Podiatrist Foot & Ankle Surgery | DX: S91.302D Unspecified open wound, left foot, subsequent encounter (principal); E11.51 Type 2 diabetes mellitus with diabetic peripheral angiopathy without gangrene; L84 Corns and callosities; I10 Essential (primary) hypertension; E78.5 Hyperlipidemia, unspecified; M19.90 Unspecified osteoarthritis, unspecified site; F32.9 Major depressive disorder, single episode, unspecified; E11.10 Type 2 diabetes mellitus with ketoacidosis without coma; F17.210 Nicotine dependence, cigarettes, uncomplicated; F10.10 Alcohol abuse, uncomplicated; Z79.4 Long term (current) use of insulin; Z89.422 Acquired absence of other left toe(s); Z89.421 Acquired absence of other right toe(s); Z90.49 Acquired absence of other specified parts of digestive tract; Z79.899 Other long term (current) drug therapy; X58.XXXD Exposure to other specified factors, subsequent encounter | CPT/HCPCS: 11042 ==

== ENCOUNTER → 2020-08-15 | Outpatient (CLI) | payer MEDICARE | END | disposition home or self-care (01) | LOC: WOUND 10:13 | PROVIDERS: ATTEND Podiatrist Foot & Ankle Surgery | DX: E11.621 Type 2 diabetes mellitus with foot ulcer (principal); L97.522 Non-pressure chronic ulcer of other part of left foot with fat layer exposed; L97.411 Non-pressure chronic ulcer of right heel and midfoot limited to breakdown of skin; E11.51 Type 2 diabetes mellitus with diabetic peripheral angiopathy without gangrene; L84 Corns and callosities; I10 Essential (primary) hypertension; E78.5 Hyperlipidemia, unspecified; M19.90 Unspecified osteoarthritis, unspecified site; F32.9 Major depressive disorder, single episode, unspecified; E11.10 Type 2 diabetes mellitus with ketoacidosis without coma; F17.210 Nicotine dependence, cigarettes, uncomplicated; Z79.4 Long term (current) use of insulin; Z89.422 Acquired absence of other left toe(s); Z90.49 Acquired absence of other specified parts of digestive tract; Z89.421 Acquired absence of other right toe(s); Z79.899 Other long term (current) drug therapy | CPT/HCPCS: 11042 ==

== ENCOUNTER → 2020-09-19 | Outpatient (CLI) | payer MEDICARE ==
[~2020-09-19] MED LIST changes: +AMLO-211 PO; -AMLO10TA8 PO
== END | disposition home or self-care (01) ==
LOC: WOUND 10:00
PROVIDERS: ATTEND Podiatrist Foot & Ankle Surgery
DX: E11.621 Type 2 diabetes mellitus with foot ulcer (principal); L97.522 Non-pressure chronic ulcer of other part of left foot with fat layer exposed; L97.411 Non-pressure chronic ulcer of right heel and midfoot limited to breakdown of skin; E11.51 Type 2 diabetes mellitus with diabetic peripheral angiopathy without gangrene; L84 Corns and callosities; I10 Essential (primary) hypertension; E78.5 Hyperlipidemia, unspecified; M19.90 Unspecified osteoarthritis, unspecified site; F32.9 Major depressive disorder, single episode, unspecified; E11.10 Type 2 diabetes mellitus with ketoacidosis without coma; F17.210 Nicotine dependence, cigarettes, uncomplicated; F10.10 Alcohol abuse, uncomplicated; R26.9 Unspecified abnormalities of gait and mobility; Z79.4 Long term (current) use of insulin; Z89.422 Acquired absence of other left toe(s); Z90.49 Acquired absence of other specified parts of digestive tract; Z89.421 Acquired absence of other right toe(s); Z79.899 Other long term (current) drug therapy
CPT/HCPCS: 11042

== ENCOUNTER → 2020-10-10 | Outpatient (CLI) | payer MEDICARE | END | disposition home or self-care (01) | LOC: WOUND 14:00 | PROVIDERS: ATTEND Podiatrist Foot & Ankle Surgery | DX: E11.621 Type 2 diabetes mellitus with foot ulcer (principal); L97.522 Non-pressure chronic ulcer of other part of left foot with fat layer exposed; S91.302D Unspecified open wound, left foot, subsequent encounter; E11.51 Type 2 diabetes mellitus with diabetic peripheral angiopathy without gangrene; L84 Corns and callosities; I10 Essential (primary) hypertension; E78.5 Hyperlipidemia, unspecified; M19.90 Unspecified osteoarthritis, unspecified site; F32.9 Major depressive disorder, single episode, unspecified; E11.10 Type 2 diabetes mellitus with ketoacidosis without coma; F17.210 Nicotine dependence, cigarettes, uncomplicated; F10.10 Alcohol abuse, uncomplicated; R26.9 Unspecified abnormalities of gait and mobility; Z79.4 Long term (current) use of insulin; Z89.422 Acquired absence of other left toe(s); Z89.421 Acquired absence of other right toe(s); Z90.49 Acquired absence of other specified parts of digestive tract; Z79.899 Other long term (current) drug therapy; W19.XXXD Unspecified fall, subsequent encounter | CPT/HCPCS: 11042 ==

== ENCOUNTER → 2020-10-17 | Outpatient (CLI) | payer MEDICARE | END | disposition home or self-care (01) | LOC: WOUND 08:47 | PROVIDERS: ATTEND Podiatrist Foot & Ankle Surgery | DX: E11.621 Type 2 diabetes mellitus with foot ulcer (principal); L97.522 Non-pressure chronic ulcer of other part of left foot with fat layer exposed; S91.302D Unspecified open wound, left foot, subsequent encounter; E11.51 Type 2 diabetes mellitus with diabetic peripheral angiopathy without gangrene; L84 Corns and callosities; I10 Essential (primary) hypertension; E78.5 Hyperlipidemia, unspecified; M19.90 Unspecified osteoarthritis, unspecified site; F32.9 Major depressive disorder, single episode, unspecified; E11.10 Type 2 diabetes mellitus with ketoacidosis without coma; F17.210 Nicotine dependence, cigarettes, uncomplicated; F10.10 Alcohol abuse, uncomplicated; R26.9 Unspecified abnormalities of gait and mobility; Z79.4 Long term (current) use of insulin; Z89.422 Acquired absence of other left toe(s); Z89.421 Acquired absence of other right toe(s); Z90.49 Acquired absence of other specified parts of digestive tract; Z79.899 Other long term (current) drug therapy; W19.XXXD Unspecified fall, subsequent encounter | CPT/HCPCS: 97597 ==

== ENCOUNTER → 2020-10-24 | Outpatient (CLI) | payer MEDICARE | END | disposition home or self-care (01) | LOC: WOUND 09:55 | PROVIDERS: ATTEND Podiatrist Foot & Ankle Surgery | DX: E11.621 Type 2 diabetes mellitus with foot ulcer (principal); L97.522 Non-pressure chronic ulcer of other part of left foot with fat layer exposed; S91.302D Unspecified open wound, left foot, subsequent encounter; E11.51 Type 2 diabetes mellitus with diabetic peripheral angiopathy without gangrene; L84 Corns and callosities; I10 Essential (primary) hypertension; E78.5 Hyperlipidemia, unspecified; M19.90 Unspecified osteoarthritis, unspecified site; F32.9 Major depressive disorder, single episode, unspecified; E11.10 Type 2 diabetes mellitus with ketoacidosis without coma; F17.210 Nicotine dependence, cigarettes, uncomplicated; F10.10 Alcohol abuse, uncomplicated; R26.9 Unspecified abnormalities of gait and mobility; Z79.4 Long term (current) use of insulin; Z89.422 Acquired absence of other left toe(s); Z89.421 Acquired absence of other right toe(s); Z90.49 Acquired absence of other specified parts of digestive tract; Z79.899 Other long term (current) drug therapy; W19.XXXD Unspecified fall, subsequent encounter | CPT/HCPCS: 11042 ==

== ENCOUNTER → 2020-11-07 | Outpatient (CLI) | payer MEDICARE ==
[~2020-11-07] MED LIST changes: +GADOTERATE 10 MMOL/20 ML VIAL ONE
== END | disposition home or self-care (01) ==
LOC: RAD 10:51
PROVIDERS: ATTEND Podiatrist Foot & Ankle Surgery
DX: L97.522 Non-pressure chronic ulcer of other part of left foot with fat layer exposed (principal)
CPT/HCPCS: 73720; A9575

== ENCOUNTER → 2020-11-07 | Outpatient (CLI) | payer MEDICARE ==
[~2020-11-07] MED LIST changes: -GADOTERATE 10 MMOL/20 ML VIAL ONE
== END | disposition home or self-care (01) ==
LOC: WOUND 08:55
PROVIDERS: ATTEND Podiatrist Foot & Ankle Surgery
DX: E11.621 Type 2 diabetes mellitus with foot ulcer (principal); L97.522 Non-pressure chronic ulcer of other part of left foot with fat layer exposed; S91.302D Unspecified open wound, left foot, subsequent encounter; E11.51 Type 2 diabetes mellitus with diabetic peripheral angiopathy without gangrene; L84 Corns and callosities; I10 Essential (primary) hypertension; E78.5 Hyperlipidemia, unspecified; M19.90 Unspecified osteoarthritis, unspecified site; F32.9 Major depressive disorder, single episode, unspecified; E11.10 Type 2 diabetes mellitus with ketoacidosis without coma; F17.210 Nicotine dependence, cigarettes, uncomplicated; F10.10 Alcohol abuse, uncomplicated; R26.9 Unspecified abnormalities of gait and mobility; Z79.4 Long term (current) use of insulin; Z89.422 Acquired absence of other left toe(s); Z89.421 Acquired absence of other right toe(s); Z90.49 Acquired absence of other specified parts of digestive tract; Z79.899 Other long term (current) drug therapy; W22.8XXD Striking against or struck by other objects, subsequent encounter
CPT/HCPCS: 17250; 87070; 87077; 87186; 87205

== ENCOUNTER 2020-11-14 10:46 | Inpatient (IN) | payer MEDICARE ==
[~2020-11-14] VITALS: Ht 182.9 cm; Wt 92.0 kg
--- NOTE | 2020-11-14 11:14 | NUR ---
PT BROUGHT BACK FROM [facility] WITH CHIEF COMPLAINT OF LEFT FOOT PAIN/WOUND SENT FROM [facility]ARE CL[facility]
[2020-11-14] MEDS ORDERED: SODIUM CHLORIDE FLUSH 10ML SYR IVF ONE (11:30)
--- NOTE | 2020-11-14 11:50 | NUR ---
TREASURE REPORT RECEIVED FROM DAVID VELASCO FOR TRANSFER OF PATIENT CARE.
[2020-11-14 11:51] LABS: BASOPHILS % (AUTO) 1 % (0-1); EOSINOPHILS % (AUTO) 3 % (1-7); LYMPHOCYTES % (AUTO) 28 % (22-44); MEAN CORPUSCULAR HEMOGLOBIN 29.9 pg (27.5-34.5); MEAN CORPUSCULAR HGB CONC 34.1 g/dL (33.2-36.2); MEAN PLATELET VOLUME 7.4 fL (7.4-10.4); MONOCYTES % (AUTO) 9 % (2-9); NEUTROPHILS % (AUTO) 60 % (42-75); PLATELET COUNT 199 x10^3/uL (130-400); RED BLOOD COUNT 4.15 x10^6/uL (4.38-5.82); RED CELL DISTRIBUTION WIDTH 13.8 % (9.4-14.8)
[2020-11-14 12:01] LABS: ALANINE AMINOTRANSFERASE 30 U/L (12-78); ALBUMIN 3.3 g/dL (3.4-5.0); ANION GAP 9 mmol/L (5-15); CALCIUM 8.8 mg/dL (8.5-10.1); CHLORIDE 102 mmol/L (98-107); CREATININE 0.91 mg/dL (0.7-1.3)
--- NOTE | 2020-11-14 12:03 | NUR ---
FIRST CONTACT WITH PATIENT: PATIENT RESTING IN GURNEY, EYES CLOSED, RESP EVEN AND UNLABORED, VSS, CALL LIGHT WITHIN REACH. TUBE HANDLER AT BEDSIDE FOR IV START.
[2020-11-14 12:04] LABS: ALKALINE PHOSPHATASE 122 U/L (45-117); BILIRUBIN,TOTAL 0.3 mg/dL (0.2-1.0); TOTAL PROTEIN 6.7 g/dL (6.4-8.2)
[2020-11-14 12:05] LABS: MD NO
--- NOTE | 2020-11-14 13:09 | NUR ---
PATIENT RESTING IN GURNEY WITH EYES CLOSED, RESP EVEN AND UNLABORED. VSS, SIDE RAILS UP X2, CALL LIGHT WITHIN REACH.
[2020-11-14] MEDS ORDERED: PIPERACILLIN/TAZO/PMX 3.375GM 50 ML ONE (13:13)
--- NOTE | 2020-11-14 13:24 | NUR ---
RACHEAL MAYEN SWAB COLLECTED AND WALKED TO LAB.
[2020-11-14] MEDS ORDERED: VANCOMYCIN PER PHARMACY MC PRN (14:00)
[2020-11-14] MEDS ORDERED: PIPERACILLIN/TAZO/PMX 3.375GM 50 ML IV ONE (14:00)
[2020-11-14] MEDS ORDERED: VANCOMYCIN PMX 1GM/200ML 200 ML IV ONE (14:00)
[2020-11-14] MEDS: PIPERACILLIN/TAZO/PMX 3.375GM 50 ML IV SCH ×2 (14:00→20:41)
--- NOTE | 2020-11-14 14:26 | NUR ---
DR. GILLESPIE AT BEDSIDE FOR ADMISSION EVALUATION.
[2020-11-14] MEDS ORDERED: PHARMACOKINETIC CONSULTATION MC ONE (14:30)
[2020-11-14] MEDS ORDERED: PHARMACOKINETIC MONITORING MC PRN (14:30)
[2020-11-14] MEDS ORDERED: VANCOMYCIN 2,300 MG in SODIUM CHLORIDE 0.9% 500 ML IV ONE (14:45)
[2020-11-14] MEDS: SODIUM CHLORIDE 0.9% 1,000 ML IV SCH (14:53)
[2020-11-14] MEDS ORDERED: ENALAPRILAT 1.25 MG/ML, 2ML IVPush PRN (15:00)
[2020-11-14] MEDS ORDERED: ONDANSETRON 2MG/ML, 2ML IVPush PRN (15:00)
[2020-11-14] MEDS ORDERED: DEXTROSE 50%, 50ML SYRINGE IVPush PRN (15:00)
[2020-11-14] MEDS ORDERED: GLUCAGON 1 MG IM PRN (15:00)
[2020-11-14] MEDS ORDERED: LABETALOL 5MG/ML, 20ML IVPush PRN (15:00)
[2020-11-14] MEDS ORDERED: MORPHINE SULFATE 4 MG/ML, 1ML IVPush PRN (15:00)
[2020-11-14] MEDS ORDERED: DEXTROSE 4 GM TAB.CHEW PO PRN (15:00)
[2020-11-14] MEDS ORDERED: ACETAMINOPHEN 325 MG TABLET PO PRN (15:00)
--- NOTE | 2020-11-14 15:40 | NUR ---
REPORT GIVEN TO DAVID RIOS ON SURGICAL FLOOR FOR TRANSFER OF PATIENT CARE.
[2020-11-14] MEDS: INSULIN LISPRO 100 UNITS/ML, PEN SQ-INSULIN SCH ×2 (16:00→20:58)
--- NOTE | 2020-11-14 16:14 | NUR ---
PATIENT TRANSFERRED IN STABLE CONDITION TO SURGICAL FLOOR VIA GURNEY WITH BREWING DIRECTOR. ALL PATIENT BELONGINGS GATHERED AND TAKEN TO FLOOR WITH PATIENT.
[2020-11-14] MEDS: GABAPENTIN 300 MG CAPSULE PO SCH ×2 (16:32→20:41)
[2020-11-14 16:41] VITALS: BP 149/91
[2020-11-14] MEDS ORDERED: FENTANYL PF 100 MCG/2ML ONE ×2 (18:39→19:51)
[2020-11-14] MEDS ORDERED: MIDAZOLAM 1 MG/ML, 2ML ONE (18:39)
[2020-11-14] MEDS ORDERED: ONDANSETRON 2MG/ML, 2ML ONE (18:44)
[2020-11-14] MEDS ORDERED: CEFAZOLIN 1,000 MG ONE (18:44)
[2020-11-14] MEDS ORDERED: PROPOFOL 10 MG/ML, 20ML ONE (18:44)
[2020-11-14] MEDS ORDERED: LIDOCAINE-MPF 2% ,5ML ONE (18:44)
[2020-11-14] MEDS ORDERED: OXYcodone 5 MG/5 ML ORAL.SOL UDC ONE (19:51)
[2020-11-14] MEDS ORDERED: OXYcodone 5 MG/5 ML ORAL.SOL UDC PO PRN (20:00)
[2020-11-14] MEDS ORDERED: FENTANYL PF 100 MCG/2ML IV PRN (20:00)
[2020-11-14] MEDS: SODIUM CHLORIDE FLUSH 10ML SYR IVF SCH (20:41)
[2020-11-14] MEDS: BUPROPION SR 150 MG TABLET PO SCH (20:41)
[2020-11-14] MEDS: ATORVASTATIN 40 MG TABLET PO SCH (20:41)
[2020-11-14 20:42] VITALS: BP 131/84
[2020-11-15 00:02] VITALS: BP 118/78
[2020-11-15] MEDS: PIPERACILLIN/TAZO/PMX 3.375GM 50 ML IV SCH ×4 (02:29→23:03)
[2020-11-15] MEDS: VANCOMYCIN 1,800 MG in SODIUM CHLORIDE 0.9% 250 ML IV SCH ×2 (03:02→20:37)
[2020-11-15 03:49] VITALS: BP 125/76
[2020-11-15 05:11] LABS: BASOPHILS % (AUTO) 1 % (0-1); EOSINOPHILS % (AUTO) 3 % (1-7); LYMPHOCYTES % (AUTO) 20 % (22-44); MEAN CORPUSCULAR HEMOGLOBIN 29.9 pg (27.5-34.5); MEAN CORPUSCULAR HGB CONC 33.3 g/dL (33.2-36.2); MEAN PLATELET VOLUME 7.8 fL (7.4-10.4); MONOCYTES % (AUTO) 8 % (2-9); NEUTROPHILS % (AUTO) 68 % (42-75); PLATELET COUNT 206 x10^3/uL (130-400); RED BLOOD COUNT 4.29 x10^6/uL (4.38-5.82); RED CELL DISTRIBUTION WIDTH 13.8 % (9.4-14.8)
[2020-11-15 05:13] LABS: MD NO
[2020-11-15 05:22] LABS: ALBUMIN 3.1 g/dL (3.4-5.0); ANION GAP 6 mmol/L (5-15); CALCIUM 8.4 mg/dL (8.5-10.1); CHLORIDE 107 mmol/L (98-107)
[2020-11-15 05:25] LABS: ALANINE AMINOTRANSFERASE 30 U/L (12-78); ALKALINE PHOSPHATASE 122 U/L (45-117); BILIRUBIN,TOTAL 0.8 mg/dL (0.2-1.0); CREATININE 0.93 mg/dL (0.7-1.3); TOTAL PROTEIN 6.3 g/dL (6.4-8.2)
[2020-11-15 07:07] VITALS: BP 130/79
[2020-11-15] MEDS: INSULIN LISPRO 100 UNITS/ML, PEN SQ-INSULIN SCH ×4 (08:32→20:49)
[2020-11-15] MEDS: AMLODIPINE 10 MG TAB PO SCH (08:32)
[2020-11-15] MEDS: BUPROPION SR 150 MG TABLET PO SCH ×2 (08:32→20:49)
[2020-11-15] MEDS: LISINOPRIL 40 MG TABLET PO SCH (08:32)
[2020-11-15] MEDS: GABAPENTIN 300 MG CAPSULE PO SCH ×3 (08:33→20:49)
[2020-11-15] MEDS: SODIUM CHLORIDE FLUSH 10ML SYR IVF SCH ×2 (09:00→20:50)
[2020-11-15] MEDS: HYDROcodone/APAP 5/325 TABLET PO PRN ×3 (09:46→20:49)
[2020-11-15] MEDS: SODIUM CHLORIDE 0.9% 1,000 ML IV SCH (10:00)
[2020-11-15 12:41] VITALS: BP 110/73
[2020-11-15 19:11] VITALS: BP 95/59
[2020-11-15] MEDS: ATORVASTATIN 40 MG TABLET PO SCH (20:49)
[2020-11-16 01:12] VITALS: BP 105/65
[2020-11-16 03:26] VITALS: BP 100/49
[2020-11-16] MEDS: PIPERACILLIN/TAZO/PMX 3.375GM 50 ML IV SCH ×4 (04:59→23:09)
[2020-11-16] MEDS: HYDROcodone/APAP 5/325 TABLET PO PRN ×4 (05:03→21:20)
[2020-11-16 05:46] LABS: BASOPHILS % (AUTO) 1 % (0-1); EOSINOPHILS % (AUTO) 3 % (1-7); LYMPHOCYTES % (AUTO) 33 % (22-44); MEAN CORPUSCULAR HEMOGLOBIN 29.6 pg (27.5-34.5); MEAN CORPUSCULAR HGB CONC 32.9 g/dL (33.2-36.2); MEAN PLATELET VOLUME 7.7 fL (7.4-10.4); MONOCYTES % (AUTO) 10 % (2-9); NEUTROPHILS % (AUTO) 53 % (42-75); PLATELET COUNT 181 x10^3/uL (130-400); RED CELL DISTRIBUTION WIDTH 13.9 % (9.4-14.8)
[2020-11-16 05:56] LABS: MD NO
[2020-11-16 05:59] LABS: ANION GAP 4 mmol/L (5-15); CALCIUM 8.6 mg/dL (8.5-10.1); CHLORIDE 110 mmol/L (98-107)
[2020-11-16 06:00] LABS: CREATININE 0.85 mg/dL (0.7-1.3)
[2020-11-16 06:54] VITALS: BP 120/77
[2020-11-16] MEDS: BUPROPION SR 150 MG TABLET PO SCH ×2 (07:33→21:10)
[2020-11-16] MEDS: GABAPENTIN 300 MG CAPSULE PO SCH ×3 (07:33→21:10)
[2020-11-16] MEDS: SODIUM CHLORIDE FLUSH 10ML SYR IVF SCH ×2 (07:33→21:11)
[2020-11-16] MEDS: LISINOPRIL 40 MG TABLET PO SCH (07:33)
[2020-11-16] MEDS: INSULIN LISPRO 100 UNITS/ML, PEN SQ-INSULIN SCH ×4 (07:33→21:21)
[2020-11-16] MEDS: AMLODIPINE 10 MG TAB PO SCH (07:33)
[2020-11-16 12:46] VITALS: BP 110/73
[2020-11-16] MEDS: ENOXAPARIN 40 MG/0.4 ML SQ SCH (13:38)
[2020-11-16] MEDS: DAPTOMYCIN 550 MG in SODIUM CHLORIDE 0.9% 100 ML IVPB SCH (13:38)
[2020-11-16 19:52] VITALS: BP 134/83
[2020-11-17 01:05] VITALS: BP 112/70
[2020-11-17] MEDS: HYDROcodone/APAP 5/325 TABLET PO PRN ×5 (04:31→22:27)
[2020-11-17] MEDS: PIPERACILLIN/TAZO/PMX 3.375GM 50 ML IV SCH ×3 (04:32→16:51)
[2020-11-17 05:51] LABS: HCT (SEDRATE) 37.6 % (39.2-51.8)
[2020-11-17 05:56] LABS: BASOPHILS % (AUTO) 1 % (0-1); EOSINOPHILS % (AUTO) 3 % (1-7); LYMPHOCYTES % (AUTO) 37 % (22-44); MEAN CORPUSCULAR HEMOGLOBIN 29.9 pg (27.5-34.5); MEAN CORPUSCULAR HGB CONC 33.5 g/dL (33.2-36.2); MEAN PLATELET VOLUME 7.9 fL (7.4-10.4); MONOCYTES % (AUTO) 10 % (2-9); NEUTROPHILS % (AUTO) 50 % (42-75); PLATELET COUNT 181 x10^3/uL (130-400); RED CELL DISTRIBUTION WIDTH 13.7 % (9.4-14.8)
[2020-11-17 06:05] LABS: ANION GAP 5 mmol/L (5-15); CALCIUM 8.9 mg/dL (8.5-10.1); CHLORIDE 109 mmol/L (98-107)
[2020-11-17 06:09] LABS: ALANINE AMINOTRANSFERASE 32 U/L (12-78); ALKALINE PHOSPHATASE 105 U/L (45-117); BILIRUBIN,TOTAL 0.4 mg/dL (0.2-1.0); C-REACTIVE PROTEIN, QUANT 0.41 mg/dL (0.02-0.49); CREATINE KINASE, TOTAL 111 U/L (39-308); CREATININE 0.74 mg/dL (0.7-1.3); TOTAL PROTEIN 6.6 g/dL (6.4-8.2)
[2020-11-17 06:15] LABS: MD NO
[2020-11-17 06:55] VITALS: BP 121/72
[2020-11-17] MEDS: GABAPENTIN 300 MG CAPSULE PO SCH ×3 (08:01→22:14)
[2020-11-17] MEDS: BUPROPION SR 150 MG TABLET PO SCH ×2 (08:01→22:14)
[2020-11-17] MEDS: LISINOPRIL 40 MG TABLET PO SCH (08:02)
[2020-11-17] MEDS: AMLODIPINE 10 MG TAB PO SCH (08:02)
[2020-11-17] MEDS: SODIUM CHLORIDE FLUSH 10ML SYR IVF SCH ×2 (08:04→22:14)
[2020-11-17] MEDS: INSULIN LISPRO 100 UNITS/ML, PEN SQ-INSULIN SCH ×4 (08:04→22:28)
[2020-11-17] MEDS: DAPTOMYCIN 550 MG in SODIUM CHLORIDE 0.9% 100 ML IVPB SCH (13:29)
[2020-11-17] MEDS: ENOXAPARIN 40 MG/0.4 ML SQ SCH (13:30)
[2020-11-17 13:35] VITALS: BP 130/77
[2020-11-17 18:56] VITALS: BP 121/75
[2020-11-18 00:54] VITALS: BP 109/73
[2020-11-18 05:17] LABS: BASOPHILS % (AUTO) 1 % (0-1); EOSINOPHILS % (AUTO) 3 % (1-7); LYMPHOCYTES % (AUTO) 33 % (22-44); MEAN CORPUSCULAR HEMOGLOBIN 29.7 pg (27.5-34.5); MEAN CORPUSCULAR HGB CONC 33.2 g/dL (33.2-36.2); MONOCYTES % (AUTO) 11 % (2-9); NEUTROPHILS % (AUTO) 52 % (42-75); PLATELET COUNT 174 x10^3/uL (130-400); RED BLOOD COUNT 4.13 x10^6/uL (4.38-5.82); RED CELL DISTRIBUTION WIDTH 13.7 % (9.4-14.8)
[2020-11-18 05:28] LABS: MD NO
[2020-11-18 05:29] LABS: ANION GAP 3 mmol/L (5-15); CALCIUM 8.7 mg/dL (8.5-10.1); CHLORIDE 105 mmol/L (98-107); CREATININE 0.82 mg/dL (0.7-1.3)
[2020-11-18] MEDS: HYDROcodone/APAP 5/325 TABLET PO PRN ×4 (06:28→20:31)
[2020-11-18 06:38] VITALS: BP 118/76
[2020-11-18] MEDS: BUPROPION SR 150 MG TABLET PO SCH ×2 (08:09→20:30)
[2020-11-18] MEDS: GABAPENTIN 300 MG CAPSULE PO SCH ×3 (08:09→20:30)
[2020-11-18] MEDS: LISINOPRIL 40 MG TABLET PO SCH (08:09)
[2020-11-18] MEDS: AMLODIPINE 10 MG TAB PO SCH (08:09)
[2020-11-18] MEDS: INSULIN LISPRO 100 UNITS/ML, PEN SQ-INSULIN SCH ×4 (08:14→20:34)
[2020-11-18] MEDS ORDERED: INSULIN GLARGINE 100 UNITS/ML, PEN SQ-INSULIN SCH (09:00)
[2020-11-18] MEDS: SODIUM CHLORIDE FLUSH 10ML SYR IVF SCH ×2 (09:23→20:30)
[2020-11-18] MEDS: DAPTOMYCIN 550 MG in SODIUM CHLORIDE 0.9% 100 ML IVPB SCH (13:14)
[2020-11-18] MEDS: ENOXAPARIN 40 MG/0.4 ML SQ SCH (13:14)
[2020-11-18 14:07] VITALS: BP 105/71
[2020-11-18 20:21] VITALS: BP 111/73
[2020-11-18] MEDS: INSULIN GLARGINE 100 UNITS/ML, PEN SQ-INSULIN SCH (20:35)
[2020-11-19 00:53] VITALS: BP 118/75
[2020-11-19] MEDS: BUPROPION SR 150 MG TABLET PO SCH (07:37)
[2020-11-19] MEDS: LISINOPRIL 40 MG TABLET PO SCH (07:37)
[2020-11-19] MEDS: AMLODIPINE 10 MG TAB PO SCH (07:37)
[2020-11-19] MEDS: HYDROcodone/APAP 5/325 TABLET PO PRN ×2 (07:37→11:27)
[2020-11-19] MEDS: GABAPENTIN 300 MG CAPSULE PO SCH ×2 (07:37→16:25)
[2020-11-19] MEDS: INSULIN LISPRO 100 UNITS/ML, PEN SQ-INSULIN SCH ×3 (07:38→16:28)
[2020-11-19] MEDS: INSULIN GLARGINE 100 UNITS/ML, PEN SQ-INSULIN SCH (07:38)
[2020-11-19] MEDS: SODIUM CHLORIDE FLUSH 10ML SYR IVF SCH (07:39)
[2020-11-19 07:51] LABS: ANION GAP 4 mmol/L (5-15); CALCIUM 9.4 mg/dL (8.5-10.1); CHLORIDE 103 mmol/L (98-107); CREATININE 0.87 mg/dL (0.7-1.3)
[2020-11-19 07:58] LABS: BASOPHILS % (AUTO) 1 % (0-1); EOSINOPHILS % (AUTO) 3 % (1-7); LYMPHOCYTES % (AUTO) 25 % (22-44); MEAN CORPUSCULAR HEMOGLOBIN 29.9 pg (27.5-34.5); MEAN CORPUSCULAR HGB CONC 33.2 g/dL (33.2-36.2); MONOCYTES % (AUTO) 8 % (2-9); NEUTROPHILS % (AUTO) 64 % (42-75); PLATELET COUNT 208 x10^3/uL (130-400); RED BLOOD COUNT 4.55 x10^6/uL (4.38-5.82); RED CELL DISTRIBUTION WIDTH 13.8 % (9.4-14.8)
[2020-11-19 07:59] LABS: MD NO
[2020-11-19 08:09] VITALS: BP 102/66
[2020-11-19] MEDS ORDERED: INSULIN LISPRO 100 UNITS/ML, PEN SQ-INSULIN ONE (12:00)
[2020-11-19] MEDS: DAPTOMYCIN 550 MG in SODIUM CHLORIDE 0.9% 100 ML IVPB SCH (12:01)
[2020-11-19] MEDS: ENOXAPARIN 40 MG/0.4 ML SQ SCH (12:02)
[2020-11-19] MEDS ORDERED: INSULIN GLARGINE 100 UNITS/ML, PEN SQ-INSULIN ONE (12:30)
[2020-11-19 15:58] VITALS: BP 100/66
[2020-11-19] MEDS ORDERED: HYDROcodone/APAP 10/325 MG TABLET PO PRN (16:00)
[2020-11-19] MEDS ORDERED: HYDR-3245 PO (16:07)
[2020-11-19] MEDS ORDERED: DAPT500V6 IV (16:07)
[2020-11-19] MEDS ORDERED: INSULIN GLARGINE 100 UNITS/ML, PEN SQ-INSULIN SCH (21:00)
[2020-11-19] MEDS ORDERED: metFORMIN 500 MG TABLET PO SCH (21:00)
== END 2020-11-19 17:40 | disposition home health service (06) | DRG 571 ==
LOC: ED 11:13 → SUATTDRO 13:45 → 4NE 14:38
PROVIDERS: ADMIT Internal Medicine; ATTEND Internal Medicine
PROC: 0JBR0ZZ Excision of Left Foot Subcutaneous Tissue and Fascia, Open Approach (ICD-10-PCS; principal; 2020-11-14 18:00)
PROC: 02HV33Z Insertion of Infusion Device into Superior Vena Cava, Percutaneous Approach (ICD-10-PCS; 2020-11-18)
PROC: B5181ZA Fluoroscopy of Superior Vena Cava using Low Osmolar Contrast, Guidance (ICD-10-PCS; 2020-11-18)
PROC: B548ZZA Ultrasonography of Superior Vena Cava, Guidance (ICD-10-PCS; 2020-11-18)
DX: L02.612 Cutaneous abscess of left foot (principal); E87.1 Hypo-osmolality and hyponatremia; L97.419 Non-pressure chronic ulcer of right heel and midfoot with unspecified severity; L97.429 Non-pressure chronic ulcer of left heel and midfoot with unspecified severity; Z99.11 Dependence on respirator [ventilator] status; L03.116 Cellulitis of left lower limb; E11.621 Type 2 diabetes mellitus with foot ulcer; Z20.822 Contact with and (suspected) exposure to COVID-19; D64.9 Anemia, unspecified; E11.22 Type 2 diabetes mellitus with diabetic chronic kidney disease; E11.42 Type 2 diabetes mellitus with diabetic polyneuropathy; E11.51 Type 2 diabetes mellitus with diabetic peripheral angiopathy without gangrene; E11.65 Type 2 diabetes mellitus with hyperglycemia; E78.5 Hyperlipidemia, unspecified; E88.09 Other disorders of plasma-protein metabolism, not elsewhere classified; F17.210 Nicotine dependence, cigarettes, uncomplicated; I12.9 Hypertensive chronic kidney disease with stage 1 through stage 4 chronic kidney disease, or unspecified chronic kidney disease; K21.9 Gastro-esophageal reflux disease without esophagitis; M60.9 Myositis, unspecified; N18.1 Chronic kidney disease, stage 1; Z79.4 Long term (current) use of insulin; Z82.49 Family history of ischemic heart disease and other diseases of the circulatory system; Z86.19 Personal history of other infectious and parasitic diseases; Z86.79 Personal history of other diseases of the circulatory system; Z89.429 Acquired absence of other toe(s), unspecified side
CPT/HCPCS: 36415; 36573; 80048; 80053; 82550; 82947; 82962; 83036; 85025; 85651; 86140; 87070; 87075; 87077; 87147; 87176; 87186; 87205; 87635; G0378; J0690; J0878; J1650; J2250; J2405; J2543; J2704; J3010; J3370; C1751; J1815; J7030; J7040; J7050

== ENCOUNTER → 2020-11-14 | Outpatient (CLI) | payer MEDICARE ==
[~2020-11-14] MED LIST changes: -BUPR150T6 PO; +BUPR150T7 PO
== END | disposition home or self-care (01) ==
LOC: WOUND 10:08
PROVIDERS: ATTEND Podiatrist Foot & Ankle Surgery
DX: E11.621 Type 2 diabetes mellitus with foot ulcer (principal); L97.522 Non-pressure chronic ulcer of other part of left foot with fat layer exposed; S91.302D Unspecified open wound, left foot, subsequent encounter; L03.116 Cellulitis of left lower limb; E11.51 Type 2 diabetes mellitus with diabetic peripheral angiopathy without gangrene; E78.5 Hyperlipidemia, unspecified; I10 Essential (primary) hypertension; B35.1 Tinea unguium; M19.90 Unspecified osteoarthritis, unspecified site; F32.9 Major depressive disorder, single episode, unspecified; F17.210 Nicotine dependence, cigarettes, uncomplicated; Z89.422 Acquired absence of other left toe(s); Z89.421 Acquired absence of other right toe(s); Z90.49 Acquired absence of other specified parts of digestive tract; Z79.4 Long term (current) use of insulin; X58.XXXD Exposure to other specified factors, subsequent encounter
CPT/HCPCS: G0463

== ENCOUNTER → 2020-11-20 | Outpatient (CLI) | payer MEDICARE ==
[~2020-11-20] MED LIST changes: +DAPT500V6 IV; +HYDR-3245 PO
== END | disposition home or self-care (01) ==
LOC: WOUND 08:05
PROVIDERS: ATTEND Internal Medicine
DX: E11.621 Type 2 diabetes mellitus with foot ulcer (principal); L97.522 Non-pressure chronic ulcer of other part of left foot with fat layer exposed; S91.302D Unspecified open wound, left foot, subsequent encounter; L03.116 Cellulitis of left lower limb; M65.072 Abscess of tendon sheath, left ankle and foot; E11.51 Type 2 diabetes mellitus with diabetic peripheral angiopathy without gangrene; E78.5 Hyperlipidemia, unspecified; B35.1 Tinea unguium; M19.90 Unspecified osteoarthritis, unspecified site; F32.9 Major depressive disorder, single episode, unspecified; K21.9 Gastro-esophageal reflux disease without esophagitis; E11.42 Type 2 diabetes mellitus with diabetic polyneuropathy; E11.22 Type 2 diabetes mellitus with diabetic chronic kidney disease; L84 Corns and callosities; F10.10 Alcohol abuse, uncomplicated; E11.10 Type 2 diabetes mellitus with ketoacidosis without coma; I12.9 Hypertensive chronic kidney disease with stage 1 through stage 4 chronic kidney disease, or unspecified chronic kidney disease; N18.1 Chronic kidney disease, stage 1; F17.210 Nicotine dependence, cigarettes, uncomplicated; Z89.422 Acquired absence of other left toe(s); Z89.421 Acquired absence of other right toe(s); Z90.49 Acquired absence of other specified parts of digestive tract; Z79.4 Long term (current) use of insulin; Z79.899 Other long term (current) drug therapy; X58.XXXD Exposure to other specified factors, subsequent encounter
CPT/HCPCS: 97597

== ENCOUNTER → 2020-11-27 | Outpatient (CLI) | payer MEDICARE ==
[~2020-11-27] MED LIST changes: +HYDR-1067 PO; -HYDR-3240 PO
== END | disposition home or self-care (01) ==
LOC: WOUND 09:55
PROVIDERS: ATTEND Internal Medicine
DX: E11.621 Type 2 diabetes mellitus with foot ulcer (principal); L97.522 Non-pressure chronic ulcer of other part of left foot with fat layer exposed; S91.302D Unspecified open wound, left foot, subsequent encounter; L03.116 Cellulitis of left lower limb; M65.072 Abscess of tendon sheath, left ankle and foot; E11.51 Type 2 diabetes mellitus with diabetic peripheral angiopathy without gangrene; E78.5 Hyperlipidemia, unspecified; B35.1 Tinea unguium; M19.90 Unspecified osteoarthritis, unspecified site; F32.9 Major depressive disorder, single episode, unspecified; K21.9 Gastro-esophageal reflux disease without esophagitis; E11.42 Type 2 diabetes mellitus with diabetic polyneuropathy; E11.22 Type 2 diabetes mellitus with diabetic chronic kidney disease; L84 Corns and callosities; F10.10 Alcohol abuse, uncomplicated; E11.10 Type 2 diabetes mellitus with ketoacidosis without coma; I12.9 Hypertensive chronic kidney disease with stage 1 through stage 4 chronic kidney disease, or unspecified chronic kidney disease; N18.1 Chronic kidney disease, stage 1; F17.210 Nicotine dependence, cigarettes, uncomplicated; Z89.422 Acquired absence of other left toe(s); Z89.421 Acquired absence of other right toe(s); Z90.49 Acquired absence of other specified parts of digestive tract; Z79.4 Long term (current) use of insulin; Z79.899 Other long term (current) drug therapy; X58.XXXD Exposure to other specified factors, subsequent encounter
CPT/HCPCS: 97597

== ENCOUNTER 2020-12-11 08:08 | Outpatient (CLI) | payer MEDICARE ==
[~2020-12-11 08:08] MED LIST changes: -HYDR-3245 PO; +HYDR1TAB53 PO; -LISI40TA PO; +LISI40TA9 PO
== END 2020-12-11 23:59 | disposition home or self-care (01) ==
LOC: WOUND 08:08
PROVIDERS: ATTEND Internal Medicine
DX: E11.621 Type 2 diabetes mellitus with foot ulcer (principal); L97.522 Non-pressure chronic ulcer of other part of left foot with fat layer exposed; S91.302D Unspecified open wound, left foot, subsequent encounter; L03.116 Cellulitis of left lower limb; M65.072 Abscess of tendon sheath, left ankle and foot; E78.5 Hyperlipidemia, unspecified; B35.1 Tinea unguium; M19.90 Unspecified osteoarthritis, unspecified site; F32.9 Major depressive disorder, single episode, unspecified; K21.9 Gastro-esophageal reflux disease without esophagitis; E11.10 Type 2 diabetes mellitus with ketoacidosis without coma; E11.51 Type 2 diabetes mellitus with diabetic peripheral angiopathy without gangrene; E11.42 Type 2 diabetes mellitus with diabetic polyneuropathy; E11.22 Type 2 diabetes mellitus with diabetic chronic kidney disease; L84 Corns and callosities; F10.10 Alcohol abuse, uncomplicated; I12.9 Hypertensive chronic kidney disease with stage 1 through stage 4 chronic kidney disease, or unspecified chronic kidney disease; N18.1 Chronic kidney disease, stage 1; F17.210 Nicotine dependence, cigarettes, uncomplicated; Z89.422 Acquired absence of other left toe(s); Z89.421 Acquired absence of other right toe(s); Z90.49 Acquired absence of other specified parts of digestive tract; Z79.4 Long term (current) use of insulin; Z79.899 Other long term (current) drug therapy; X58.XXXD Exposure to other specified factors, subsequent encounter
CPT/HCPCS: 97597

== ENCOUNTER → 2020-12-18 | Outpatient (CLI) | payer MEDICARE | END | disposition home or self-care (01) | LOC: WOUND 10:30 | PROVIDERS: ATTEND Internal Medicine | DX: E11.621 Type 2 diabetes mellitus with foot ulcer (principal); L97.522 Non-pressure chronic ulcer of other part of left foot with fat layer exposed; L03.116 Cellulitis of left lower limb; M65.072 Abscess of tendon sheath, left ankle and foot; E78.5 Hyperlipidemia, unspecified; B35.1 Tinea unguium; M19.90 Unspecified osteoarthritis, unspecified site; F32.9 Major depressive disorder, single episode, unspecified; K21.9 Gastro-esophageal reflux disease without esophagitis; E11.10 Type 2 diabetes mellitus with ketoacidosis without coma; E11.51 Type 2 diabetes mellitus with diabetic peripheral angiopathy without gangrene; E11.42 Type 2 diabetes mellitus with diabetic polyneuropathy; L84 Corns and callosities; F10.10 Alcohol abuse, uncomplicated; E11.22 Type 2 diabetes mellitus with diabetic chronic kidney disease; I12.9 Hypertensive chronic kidney disease with stage 1 through stage 4 chronic kidney disease, or unspecified chronic kidney disease; N18.1 Chronic kidney disease, stage 1; F17.210 Nicotine dependence, cigarettes, uncomplicated; Z89.422 Acquired absence of other left toe(s); Z89.421 Acquired absence of other right toe(s); Z90.49 Acquired absence of other specified parts of digestive tract; Z79.4 Long term (current) use of insulin; Z79.899 Other long term (current) drug therapy; Z86.19 Personal history of other infectious and parasitic diseases | CPT/HCPCS: G0463 ==

== ENCOUNTER 2021-07-03 17:43 | Observation (INO) | payer MEDICAID, MEDICARE ==
[~2021-07-03] VITALS: Ht 182.9 cm; Wt 87.1 kg
[~2021-07-03 17:43] MED LIST changes: +ACID1TAB7 PO; +BUPR150T22 PO; -BUPR150T7 PO; +CARV6.2512 PO; -HYDR-1067 PO; +HYDR-2214 PO; +INSU100I11 SQ-INSULIN; +SULF-23 PO
[2021-07-03] MEDS ORDERED: ACETAMINOPHEN 500 MG TABLET PO ONE (21:00)
[2021-07-03] MEDS ORDERED: SODIUM CHLORIDE 0.9% 1,000ML IVBOLUS ONE (21:00)
[2021-07-03] MEDS ORDERED: SODIUM CHLORIDE FLUSH 10ML SYR IVF ONE (21:00)
[2021-07-03] MEDS ORDERED: ACETAMINOPHEN 500 MG TABLET ONE (21:34)
[2021-07-03 23:04] LABS: ALBUMIN 2.9 g/dL (3.4-5.0); ANION GAP 3 mmol/L (5-15); CALCIUM 8.5 mg/dL (8.5-10.1); CHLORIDE 107 mmol/L (98-107)
[2021-07-03 23:08] LABS: ALANINE AMINOTRANSFERASE 49 U/L (12-78); ALKALINE PHOSPHATASE 178 U/L (45-117); BILIRUBIN,TOTAL 0.4 mg/dL (0.2-1.0); CREATINE KINASE, TOTAL 96 U/L (39-308); CREATININE 0.84 mg/dL (0.7-1.3); TOTAL PROTEIN 6.8 g/dL (6.4-8.2)
--- NOTE | 2021-07-03 23:19 | NUR ---
REPORT GIVEN TO MARGARET HERNANDEZ
--- NOTE | 2021-07-03 23:20 | NUR ---
REPORT FROM VEENA TRANSFER OF CARE. PT RESTING ON CLEOPATRA WILLIAMSON
--- NOTE | 2021-07-03 23:31 | NUR ---
URINE SENT TO LAB
[2021-07-03 23:48] LABS: MICROSCOPIC AUTO
[2021-07-04 00:06] LABS: BASOPHILS % (AUTO) 1 % (0-1); EOSINOPHILS % (AUTO) 2 % (1-7); LYMPHOCYTES % (AUTO) 29 % (22-44); MEAN CORPUSCULAR HEMOGLOBIN 30.2 pg (27.5-34.5); MEAN CORPUSCULAR HGB CONC 33.5 g/dL (33.2-36.2); MEAN PLATELET VOLUME 8.2 fL (7.4-10.4); MONOCYTES % (AUTO) 8 % (2-9); NEUTROPHILS % (AUTO) 61 % (42-75); PLATELET COUNT 178 x10^3/uL (130-400); RED BLOOD COUNT 4.41 x10^6/uL (4.38-5.82); RED CELL DISTRIBUTION WIDTH 13.8 % (9.4-14.8)
--- NOTE | 2021-07-04 00:33 | NUR ---
ATTEMPTED TO AMBULATE PT. PT WAS UNABLE TO SIT AT EDGE OF BED WITHOUT ASSISTANCE. ROAD TEST FAILED. NOTIFIED
--- NOTE | 2021-07-04 01:28 | NUR ---
REPORT TO ANNHARMONY PT READY FOR TRANSFER TO FLOOR
[2021-07-04] MEDS ORDERED: ONDANSETRON 2MG/ML, 2ML IVPush PRN (02:00)
[2021-07-04] MEDS ORDERED: LABETALOL 5MG/ML, 20ML IVPush PRN (02:00)
[2021-07-04] MEDS ORDERED: ENOXAPARIN 40 MG/0.4 ML SQ SCH (02:00)
[2021-07-04] MEDS ORDERED: DEXTROSE 50%, 50ML SYRINGE IVPush PRN (02:00)
[2021-07-04] MEDS ORDERED: OXYcodone IR 5MG TABLET PO PRN (02:00)
[2021-07-04] MEDS ORDERED: MELATONIN 5 MG TABLET PO PRN (02:00)
[2021-07-04] MEDS ORDERED: DEXTROSE 4 GM TAB.CHEW PO PRN (02:00)
[2021-07-04] MEDS ORDERED: GLUCAGON 1 MG IM PRN (02:00)
[2021-07-04] MEDS ORDERED: POLYETHYLENE GLYCOL 17 GM PACKET PO PRN (02:00)
[2021-07-04] MEDS ORDERED: KETOROLAC 30 MG/1 ML IV PRN (02:00)
[2021-07-04] MEDS ORDERED: ACETAMINOPHEN 325 MG TABLET PO PRN (02:00)
[2021-07-04 02:38] VITALS: BP 154/90
[2021-07-04] MEDS: INSULIN LISPRO 100 UNITS/ML, PEN SQ-INSULIN SCH ×3 (03:53→11:51)
[2021-07-04 04:06] LABS: AMPHETAMINE SCREEN, URINE Positive (Negative); BARBITURATE SCREEN, URINE Negative (Negative); BENZODIAZEPINE SCREEN, URINE Negative (Negative); CANNABINOID SCREEN, URINE Positive (Negative); COCAINE SCREEN, URINE Negative (Negative); METHADONE SCREEN, URINE Negative (Negative); OPIATE SCREEN, URINE Positive (Negative)
[2021-07-04 06:49] LABS: BASOPHILS % (AUTO) 1 % (0-1); EOSINOPHILS % (AUTO) 2 % (1-7); LYMPHOCYTES % (AUTO) 30 % (22-44); MEAN CORPUSCULAR HGB CONC 33.5 g/dL (33.2-36.2); MEAN PLATELET VOLUME 8.1 fL (7.4-10.4); MONOCYTES % (AUTO) 7 % (2-9); NEUTROPHILS % (AUTO) 61 % (42-75); PLATELET COUNT 186 x10^3/uL (130-400); RED BLOOD COUNT 3.97 x10^6/uL (4.38-5.82); RED CELL DISTRIBUTION WIDTH 13.8 % (9.4-14.8)
[2021-07-04 07:01] LABS: ANION GAP 5 mmol/L (5-15); CHLORIDE 108 mmol/L (98-107); CREATININE 0.72 mg/dL (0.7-1.3)
[2021-07-04] MEDS ORDERED: SODIUM CHLORIDE FLUSH 10ML SYR IVF SCH (09:00)
[2021-07-04 10:32] VITALS: BP 144/80
[2021-07-04] MEDS ORDERED: metFORMIN 500 MG TABLET PO SCH (17:00)
== END 2021-07-04 13:20 | disposition home or self-care (01) ==
LOC: ED 07-04 01:46 → EDIP 07-04 01:56 → INTOOBSV 07-04 01:56 → 3N 07-04 02:12
PROVIDERS: ADMIT Internal Medicine; ATTEND Hospitalist
DX: R53.1 Weakness (principal); F44.4 Conversion disorder with motor symptom or deficit; E11.65 Type 2 diabetes mellitus with hyperglycemia; E11.42 Type 2 diabetes mellitus with diabetic polyneuropathy; I10 Essential (primary) hypertension; E78.5 Hyperlipidemia, unspecified; H51.0 Palsy (spasm) of conjugate gaze; F17.210 Nicotine dependence, cigarettes, uncomplicated; F15.10 Other stimulant abuse, uncomplicated; Z79.84 Long term (current) use of oral hypoglycemic drugs; Z79.899 Other long term (current) drug therapy; Z86.79 Personal history of other diseases of the circulatory system; W19.XXXA Unspecified fall, initial encounter; Y93.89 Activity, other specified; Y92.89 Other specified places as the place of occurrence of the external cause
CPT/HCPCS: 36415; 71045; 80048; 80053; 80307; 80320; 81001; 82550; 82962; 83605; 83735; 84145; 84443; 85025; 87040; 93005; 96360; 96361; 96372; 97162; 97166; 99285; G0378; J1650; J1815; J7030; G0480